=== PATIENT | male | born 1970 | race Caucasian/White ===

== ENCOUNTER 2016-10-10 12:55 | Inpatient (IN) | payer OTHER ==
[~2016-10-10] VITALS: Ht 185.4 cm; Wt 188.2 kg
[~2016-10-10 12:55] MED LIST: ABX; ALDACTONE25 MG PO; BROMIDE; BUMEX 1 MG TAB1 MG PO; COMBIVENT RESPIM4 GM INH; FLUTICASONE PRO16 GM NASAL; K-DUR20 MEQ PO; KLOR-CON M2020 MEQ PO; LASIX80 MG PO; METOPROLOL TART25 MG PO; PERCOCET 10/3251 TA1 PO; REQUIP0.25 MG PO; SINGULAIR10 MG PO; XANAX1 MG PO; XANAX2 MG PO; ZOCOR20 MG PO; [UNRECOGNIZED DRUG - OTHER]
[2016-10-10 14:12] LABS: BASOPHILS 0.4 % (0.0-2.0); EOSINOPHILS 1.8 % (0-7); HEMATOCRIT 52.4 % (42.0-54.0); HEMOGLOBIN 17.4 g/dL (13.5-17.5); IMMATURE GRANULOCYTES 0.9 % (0-5); MCH 30.3 pg (26.0-34.0); MCHC 33.2 g/dL (31.0-37.0); MCV 91.1 fL (80.0-100.0); MEAN PLATELET VOLUME 11.2 fL (7.4-10.4); MONOCYTES 8.4 % (2-11); NEUTROPHILS 69.5 % (40-80); PLATELET COUNT 265 10x3/uL (130-400); RBC 5.75 10x6/uL (4.20-6.10); RDW 15.5 % (11.5-14.5); WBC 9.9 10x3/uL (4.8-10.8)
[2016-10-10 14:46] LABS: ALBUMIN 4.1 g/dL (3.4-5.0); ALKALINE PHOSPHATASE 110 U/L (46-116); ALT (SGPT) 38 U/L (10-68); BILIRUBIN - TOTAL 0.54 mg/dL (0.2-1.3); CALC OSMOLALITY 282 mosm/kg (275-300); CARBON DIOXIDE 38.3 mmol/L (21.0-32.0); CHLORIDE - SERUM 98 mmol/L (98-107); CREATININE - SERUM 1.5 mg/dL (0.6-1.3); GLUCOSE 96 mg/dL (74-106); POTASSIUM - SERUM 3.8 mmol/L (3.5-5.1); PROTEIN - SERUM 7.3 g/dL (6.4-8.2); SODIUM 141 mmol/L (136-145); UREA NITROGEN 18 mg/dL (7-18); eGFR NON AFRICAN AMERICAN 53 mL/min (90-120)
[2016-10-10 14:56] LABS: CKMB 1.8 U/L (0.0-3.6); CREATINE KINASE 365 UL (21-232)
[2016-10-10 14:57] LABS: PRO BNP 4 pg/mL (0-125); TROPONIN-I < 0.017 ng/mL (0.000-0.060)
[2016-10-10] MEDS ORDERED: ADIPEX-P37.5 M1 PO (16:59)
[2016-10-10] MEDS ORDERED: CYCLOBENZAPRINE10 MG PO (16:59)
[2016-10-10] MEDS ORDERED: AMBIEN10 MG PO (16:59)
[2016-10-10 17:00] VITALS: BP 161/90; BMI 54.8
--- NOTE | 2016-10-10 17:00 | NUR ---
RECEIVED TO ROOM 2229 VIA BED FROM ED. A/O X3. C/O PAIN TO RIGHT KNEE AT THIS TIME. SKIN IS CLEAR. ICE APPLIED TO RIGHT KNEE. SUPPER TRAY SERVED IN ROOM. DENIES FURTHER NEEDS.
[2016-10-10 17:30] LABS: CKMB 1.8 U/L (0.0-3.6); CREATINE KINASE 364 UL (21-232); TROPONIN-I < 0.017 ng/mL (0.000-0.060)
--- NOTE | 2016-10-10 20:07 | NUR ---
PATIENT IS STATING HE IS HAVING 10/10 PAIN. PATIENT IS REQUESTING PAIN MEDICATION AND IS UPSET THAT NOTHING IS ORDERED. DR. LARA HAS ALREADY BEEN PAGED.
--- NOTE | 2016-10-10 20:45 | NUR ---
DR. LARA RETURNED CALL AND GAVE AN ORDER FOR PERCOCET.
[2016-10-10 21:00] VITALS: BP 149/88
--- NOTE | 2016-10-10 22:20 | NUR ---
SPOKE WITH CASANDRA ABOUT GETTING AN ORDER FOR ZOFRAN. PATIENT HAS NAUSEA AND FEELS LIKE HE IS GOING TO VOMIT.
[2016-10-10 22:59] LABS: CKMB 1.7 U/L (0.0-3.6); CREATINE KINASE 338 UL (21-232)
[2016-10-10 23:00] LABS: TROPONIN-I < 0.017 ng/mL (0.000-0.060)
[2016-10-11 01:00] VITALS: BP 119/81
[2016-10-11 04:48] LABS: BASOPHILS 0.5 % (0.0-2.0); EOSINOPHILS 2.5 % (0-7); HEMATOCRIT 49.7 % (42.0-54.0); HEMOGLOBIN 16.2 g/dL (13.5-17.5); IMMATURE GRANULOCYTES 0.8 % (0-5); LYMPHOCYTES 21.2 % (15-50); MCH 29.6 pg (26.0-34.0); MCHC 32.6 g/dL (31.0-37.0); MCV 90.9 fL (80.0-100.0); MEAN PLATELET VOLUME 11.3 fL (7.4-10.4); MONOCYTES 10.5 % (2-11); NEUTROPHILS 64.5 % (40-80); PLATELET COUNT 261 10x3/uL (130-400); RBC 5.47 10x6/uL (4.20-6.10); RDW 15.6 % (11.5-14.5); WBC 8.4 10x3/uL (4.8-10.8)
[2016-10-11 05:00] VITALS: BP 133/80
[2016-10-11 05:22] LABS: CALC OSMOLALITY 279 mosm/kg (275-300); CALCIUM 8.6 mg/dL (8.5-10.1); CARBON DIOXIDE 38.1 mmol/L (21.0-32.0); CHLORIDE - SERUM 99 mmol/L (98-107); CKMB 1.2 U/L (0.0-3.6); CREATINE KINASE 289 UL (21-232); CREATININE - SERUM 1.4 mg/dL (0.6-1.3); GLUCOSE 97 mg/dL (74-106); SODIUM 140 mmol/L (136-145); UREA NITROGEN 15 mg/dL (7-18); eGFR NON AFRICAN AMERICAN 58 mL/min (90-120)
[2016-10-11 05:28] LABS: POTASSIUM - SERUM 3.1 mmol/L (3.5-5.1); TROPONIN-I < 0.017 ng/mL (0.000-0.060)
--- NOTE | 2016-10-11 07:00 | NUR ---
PT REC'D FROM [facility]. RESTING IN BEDS. PT IS FLUSHED AND COMPLAINING OF 10/10 GENERALIZED PAIN. STATES, "I FEEL LIKE MY SKIN IS COVERED IN PINS AND NEEDLES." PT ALSO STATE HE IS NAUSEOUS FROM ALL THE PAIN. PT STATES HE TAKE PERCOCET AT HOME, BUT IT IS NOT HELPING. WILL ALERT DOCTOR. BED LOW, CALL LIGHT IN REACH, DENIES NEEDS, WILL CPOC.
--- NOTE | 2016-10-11 08:13 | NUR ---
AWAKE ALERT COLOR ADQ SKIN WARM AND DRY AT PRESENT DENIES ANY NEEDS AT THIS TIME RESP EVEN AND UNLABORED AT PRESENT.
[2016-10-11 08:30] VITALS: BP 140/72
--- NOTE | 2016-10-11 09:05 | NUR ---
MORNING MEDS PASSED AT THIS TIME. PRN DEMEROL ADMINISTERED PER PT COMPLAINTS OF 10/10 GENERALIZED PAIN. WILL REASSESS.
[2016-10-11 10:31] VITALS: Ht 185.4 cm; Wt 188.2 kg
[2016-10-11 12:03] VITALS: BP 149/74
--- NOTE | 2016-10-11 13:51 | NUR ---
PT REC'D TO ROOM FROM ICU. SITTING UP ON SIDE OF BED. VISITOR IN ROOM. AAOX4. RATING CURRENT PAIN IN ABD 02/07. 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 DRESSING TO R SC CLEAN, DRY, AND INTACT. MIDLINE INCISION WITH 18 ALYCE. SITE APPROXIMATE AND FREE OF S/SX OF INFECTION. RIA DRAIN TO RLQ EMPTIED OF 150CC'S OF SEROSANGUINOUS FLUID. DRAIN COMPRESSED AND PINNED TO GOWN. DRESSING TO DRAIN SITE HAS OLD DRY BLOOD ON IT. WILL CONTINUE TO MONITOR FOR CHANGES. BOWEL SOUNDS HYPOACTIVE X4 QUADRANTS. SCD'S ON. BED LOW, CALL LIGHT IN REACH, DENIES NEEDS, WILL CPOC.
[2016-10-11 16:13] VITALS: BP 140/71
--- NOTE | 2016-10-11 19:22 | NUR ---
PATIENT RESTING IN SEMI-FOWLERS POSITION. BROUGHT PATIENT SPRITE AND ICE PER HIS REQUEST. BED IN LOWEST POSITION AND CALL LIGHT WITHIN REACH.
[2016-10-11 21:14] VITALS: BP 130/77
[2016-10-12 00:42] VITALS: BP 109/72
--- NOTE | 2016-10-12 02:07 | NUR ---
20 G IV SITED IN L INNER FOREARM X 1 ATTEMPT, SHIVA WELL, CL IN REACH
[2016-10-12 05:29] LABS: BASOPHILS 0.3 % (0.0-2.0); EOSINOPHILS 1.7 % (0-7); HEMATOCRIT 50.5 % (42.0-54.0); HEMOGLOBIN 16.7 g/dL (13.5-17.5); IMMATURE GRANULOCYTES 0.5 % (0-5); MCHC 33.1 g/dL (31.0-37.0); MCV 90.8 fL (80.0-100.0); MEAN PLATELET VOLUME 10.9 fL (7.4-10.4); MONOCYTES 10.9 % (2-11); NEUTROPHILS 71.6 % (40-80); PLATELET COUNT 239 10x3/uL (130-400); RBC 5.56 10x6/uL (4.20-6.10); WBC 10.3 10x3/uL (4.8-10.8)
[2016-10-12 05:45] LABS: ANION GAP 9.8 mmol/L (8-16); CALCIUM 8.3 mg/dL (8.5-10.1); CARBON DIOXIDE 34.7 mmol/L (21.0-32.0); CREATININE - SERUM 1.4 mg/dL (0.6-1.3); POTASSIUM - SERUM 3.5 mmol/L (3.5-5.1)
[2016-10-12 05:55] VITALS: BP 118/58
--- NOTE | 2016-10-12 07:00 | NUR ---
PT REC'D FROM [facility]. RESTING IN BED WATCHING TV. STATES, "THE PAIN IS BETTER TODAY, BUT STILL THERE." REMINDED PT THAT HE COULD NOT HAVE PAIN MEDS UNTIL ABOUT 1130. PT UNDERSTANDS AND HAS NO QUESTIONS. BILAT SWELLING TO LE NON-PITTING. NEW IV TO L FOREARM FREE OF REDDNESS AND SWELLING. BED LOW, CALL LIGHT IN REACH, DENIES NEEDS, CPOC.
[2016-10-12 08:43] VITALS: BP 106/56
--- NOTE | 2016-10-12 09:20 | NUR ---
MORNING MEDS PASSED AT THIS TIME. RESTING IN BED WATCHING TV. COMPLAINTS OF NAUSEA. WILL ADMINISTER ANTIEMETIC ORDERED. BED LOW, CALL LIGHT IN REACH, DENIES NEEDS, CPOC.
--- NOTE | 2016-10-12 10:15 | NUR ---
PRN ZOFRAN ADMINISTERED PER COMPLAINTS OF NAUSEA. IV TO L FOREARM PATENT. BED LOW, CALL LIGHT IN REACH, PROVIDED PT WITH ICE CHIPS. CPOC.
--- NOTE | 2016-10-12 12:00 | NUR ---
PATIENT SITTING UP ON THE SIDE OF THE BED EATING LUNCH. STILL COMPLAINING OF A SLIGHT HEADACHE. BP RECHECKED FROM EARLIER @ 157/48. INSTRUCTED TO CALL IF NEEDED ANYTHING FURTHER. BED LOW AND LOCKED. CALL LIGHT IN REACH. PATIENT VERBALIZED UNDERSTANDING.
[2016-10-12 12:30] VITALS: BP 147/85
--- NOTE | 2016-10-12 14:00 | NUR ---
AWAKE ALERT COLOR ADQ SKIN WARM AND DRY RESP EVEN AND UNLABORED AT PRESENT WAITING TO GO HOME.
--- NOTE | 2016-10-12 14:35 | NUR ---
PATIENT IS SITTING UP ON THE SIDE OF THE BED TALKING ON THE PHONE. DENIES NEEDS @ THIS TIME. DENIES PAIN. INSTRUCTED TO CALL IF NEEDED ANYTHING. BED LOW AND LOCKED. PATIENT VERBALIZED UNDERSTANDING.
--- NOTE | 2016-10-12 14:53 | NUR ---
DC INSTRUCTIONS AND F/U APPOINTMENTS DISCUSSED WITH PT. IV TO L FOREARM DC'D WITH CATHETER INTACT. NO QUESTIONS OR CONCERNS VOICED AT THIS TIME. ESCORTED OUT VIA WC. DC TO HOME.
--- NOTE | 2016-10-14 15:29 | EC ---
PATIENT:BALDO GAN DATE OF SERVICE: 10/10/16 SEX: M MEDICAL RECORD: [id number] DATE OF : 70 LOCATION:D.MS [facility] AGE OF PATIENT: 46 ADMISSION DATE: 10/10/16 REFERRING PHYSICIAN: INTERPRETING PHYSICIAN: ELAN NIETO M.D. ECHOCARDIOGRAM REPORT ECHO CHARGES 4 ECHO COMPLETE CLINICAL DIAGNOSIS: DYSPNEA ECHOCARDIOGRAPHIC MEASUREMENTS (adult normal given) AC root (d.<3.7cm) 3.4 LV Septum d (<1.2 cm> 1.1 Valve Excursion 2.4 LV Septum (systole) 1.9 Left Atria (s.<4.0cm> 3.4 LVPW d(<1.2cm) 1.2 RV (d.<2.3cm) 3.1 LVPW (sytole) 1.6 LV diastole(<5.6CM) 7.7 MV E-F(>70mm/sec) LV systole 6.2 LVOT Diameter 2.1 MV exc.(>10mm) Est.ejection fraction (50-75%) Pericardial Effusion N DOPPLER: LVIT A 68.0 E 84.0 LA RVSP 27.0 LVOT 139 AOP1/2T Asc. Ao 153 RVOT 79.0 RA PA 97.0 AV Gradient Peak 9.4 AV Mean 6.3 AV Area 3.3 MV Gradient Peak 4.5 MV Mean 1.9 MV Area COMMENTS: Play Writer: Elodia SÁNCHEZOE Patient Transition Specialist:Oleg Nieto TAPE# PACS DATE OF SERVICE: 10/11/2016 REFERRING PHYSICIAN: Ana Rosa Rodriguez MD INDICATION: Dyspnea. DESCRIPTION: Left ventricle is moderately dilated. However, systolic function is preserved. Estimated ejection fraction is in the order of 60%. Mitral valve is structurally normal. There is no regurgitation or prolapse seen. Left atrium is normal in size. The aortic valve is trileaflet. There is no stenosis ECHOCARDIOGRAM REPORT [id number] BALDO GAN or regurgitation seen. Right ventricle is mildly dilated. Tricuspid valve is structurally normal. There is no regurgitation noted. Right atrium is mildly dilated. There is no pericardial effusion noted. Right ventricular systolic pressure is measured at 27 mmHg. IMPRESSION: 1. Moderately dilated left ventricle with preserved ejection fraction of 60%. 2. No valvular abnormalities are noted. TRANSINT:[id number] Voice Confirmation ID: [id number] DOCUMENT ID: [id number] ELAN NIETO M.D. at 1529 CC: [id number] DICTATION DATE: 10/12/16744 STRATEGIC ADVISOR: 10/12/16 0841 DIS IN 10/12/16 [place] [id number] [place] [id number]
== END 2016-10-12 15:13 | disposition home or self-care (01) | DRG 189 ==
LOC: D.ER 12:55 → D.MS 15:39
PROVIDERS: Family Medicine; ADMIT Emergency Medicine
DX: J96.00 Acute respiratory failure, unspecified whether with hypoxia or hypercapnia (principal); Z68.43 Body mass index [BMI] 50.0-59.9, adult; R60.0 Localized edema; I83.90 Asymptomatic varicose veins of unspecified lower extremity; R07.9 Chest pain, unspecified; I48.0 Paroxysmal atrial fibrillation; I51.7 Cardiomegaly; E78.5 Hyperlipidemia, unspecified; K21.9 Gastro-esophageal reflux disease without esophagitis; F41.9 Anxiety disorder, unspecified; E66.01 Morbid (severe) obesity due to excess calories

== ENCOUNTER 2016-11-06 05:55 | Emergency (ER) | payer OTHER ==
[2016-10-11 10:31] VITALS: BMI 54.7
[~2016-11-06 05:55] MED LIST changes: +ADIPEX-P37.5 M1 PO; +AMBIEN10 MG PO; +CYCLOBENZAPRINE10 MG PO
== END 2016-11-06 06:56 | disposition home or self-care (01) ==
LOC: D.ER 05:55
DX: S10.93XA Contusion of unspecified part of neck, initial encounter (principal); Y04.2XXA Assault by strike against or bumped into by another person, initial encounter; Y93.89 Activity, other specified; Y92.89 Other specified places as the place of occurrence of the external cause; I48.91 Unspecified atrial fibrillation; I25.10 Atherosclerotic heart disease of native coronary artery without angina pectoris; I10 Essential (primary) hypertension

== ENCOUNTER → 2016-11-06 09:30 | Outpatient (CLI) | payer OTHER ==
[2016-10-11 10:31] VITALS: BMI 54.7
== END | disposition home or self-care (01) ==
LOC: D.CT 09:30
DX: R42 Dizziness and giddiness (principal); S09.90XA Unspecified injury of head, initial encounter

== ENCOUNTER 2017-01-12 23:41 | Emergency (ER) | payer OTHER ==
[2016-10-11 10:31] VITALS: BMI 54.7
== END 2017-01-13 00:57 | disposition home or self-care (01) ==
LOC: D.ER 23:41
DX: F32.9 Major depressive disorder, single episode, unspecified (principal); I50.9 Heart failure, unspecified; I25.10 Atherosclerotic heart disease of native coronary artery without angina pectoris; I10 Essential (primary) hypertension; I73.9 Peripheral vascular disease, unspecified

== ENCOUNTER 2017-02-04 23:28 | Emergency (ER) | payer OTHER ==
[2016-10-11 10:31] VITALS: BMI 54.7
== END 2017-02-05 02:12 | disposition home or self-care (01) ==
LOC: D.ER 23:28
DX: M25.561 Pain in right knee (principal)

== ENCOUNTER 2017-02-11 22:44 | Emergency (ER) | payer OTHER ==
[2016-10-11 10:31] VITALS: BMI 54.7
[2017-02-11 23:33] LABS: BASOPHILS 0.3 % (0-2); EOSINOPHILS 1.4 % (0-7); HEMOGLOBIN 17.4 g/dL (13.5-17.5); IMMATURE GRANULOCYTES 0.8 % (0-5); LYMPHOCYTES 15.3 % (15-50); MCH 31.2 pg (26.0-34.0); MCHC 33.5 g/dL (31.0-37.0); MCV 93.2 fL (80.0-100.0); MEAN PLATELET VOLUME 11.2 fL (7.4-10.4); MONOCYTES 11.2 % (2-11); PLATELET COUNT 280 10x3/uL (130-400); RBC 5.58 10x6/uL (4.20-6.10); WBC 11.9 10x3/uL (4.8-10.8)
[2017-02-11 23:48] LABS: ALBUMIN 3.4 g/dL (3.4-5.0); ALKALINE PHOSPHATASE 94 U/L (46-116); ALT (SGPT) 42 U/L (10-68); CALC OSMOLALITY 283 mosm/kg (275-300); CALCIUM 8.8 mg/dL (8.5-10.1); CARBON DIOXIDE 34.5 mmol/L (21.0-32.0); CHLORIDE - SERUM 101 mmol/L (98-107); CREATININE - SERUM 1.3 mg/dL (0.6-1.3); GLUCOSE 98 mg/dL (74-106); POTASSIUM - SERUM 3.3 mmol/L (3.5-5.1); PROTEIN - SERUM 6.9 g/dL (6.4-8.2); SODIUM 142 mmol/L (136-145); UREA NITROGEN 14 mg/dL (7-18); eGFR NON AFRICAN AMERICAN 63 mL/min (90-120)
[2017-02-11 23:59] LABS: CHOL - HDL RATIO 8.9 ratio (2.3-4.9); CHOLESTEROL, TOTAL 196 mg/dL (0-200); CKMB 0.5 U/L (0.0-3.6); CREATINE KINASE 146 UL (21-232); HDL CHOLESTEROL 22 mg/dL (32-96); PRO BNP 13 pg/mL (0-125); TRIGLYCERIDE 451 mg/dL (30-200); TROPONIN-I < 0.017 ng/mL (0.000-0.060)
== END 2017-02-12 01:45 | disposition home or self-care (01) ==
LOC: D.ER 22:44
PROVIDERS: Emergency Medicine
DX: R07.9 Chest pain, unspecified (principal); I10 Essential (primary) hypertension; I48.2 Chronic atrial fibrillation; R05 Cough; R06.00 Dyspnea, unspecified

== ENCOUNTER 2017-03-03 21:30 | Emergency (ER) | payer OTHER ==
[2016-10-11 10:31] VITALS: BMI 54.7
== END 2017-03-04 00:20 | disposition home or self-care (01) ==
LOC: D.ER 21:30
DX: S83.91XA Sprain of unspecified site of right knee, initial encounter (principal); X58.XXXA Exposure to other specified factors, initial encounter; Y93.89 Activity, other specified; Y92.89 Other specified places as the place of occurrence of the external cause; J45.909 Unspecified asthma, uncomplicated; I10 Essential (primary) hypertension

== ENCOUNTER 2017-04-22 04:22 | Emergency (ER) | payer OTHER ==
[2016-10-11 10:31] VITALS: BMI 54.7
[2017-04-22 05:49] LABS: BASOPHILS 0.3 % (0-2); EOSINOPHILS 1.4 % (0-7); HEMATOCRIT 50.4 % (42.0-54.0); HEMOGLOBIN 16.9 g/dL (13.5-17.5); LYMPHOCYTES 18.4 % (15-50); MCH 31.6 pg (26.0-34.0); MCHC 33.5 g/dL (31.0-37.0); MCV 94.2 fL (80.0-100.0); MEAN PLATELET VOLUME 11.1 fL (7.4-10.4); NEUTROPHILS 70.9 % (40-80); RBC 5.35 10x6/uL (4.20-6.10); RDW 15.3 % (11.5-14.5); WBC 10.5 10x3/uL (4.8-10.8)
[2017-04-22 05:55] LABS: PLATELET COUNT 208 10x3/uL (130-400)
[2017-04-22 06:04] LABS: ALBUMIN 3.2 g/dL (3.4-5.0); ALKALINE PHOSPHATASE 91 U/L (46-116); ALT (SGPT) 34 U/L (10-68); CALC OSMOLALITY 274 mosm/kg (275-300); CALCIUM 8.7 mg/dL (8.5-10.1); CARBON DIOXIDE 30.3 mmol/L (21.0-32.0); CHLORIDE - SERUM 99 mmol/L (98-107); CREATININE - SERUM 1.3 mg/dL (0.6-1.3); GLUCOSE 124 mg/dL (74-106); POTASSIUM - SERUM 4.1 mmol/L (3.5-5.1); PROTEIN - SERUM 6.7 g/dL (6.4-8.2); SODIUM 136 mmol/L (136-145); UREA NITROGEN 18 mg/dL (7-18); eGFR NON AFRICAN AMERICAN 63 mL/min (90-120)
[2017-04-22 06:16] LABS: CHOL - HDL RATIO 6.8 ratio (2.3-4.9); CHOLESTEROL, TOTAL 163 mg/dL (0-200); CKMB 0.1 U/L (0.0-3.6); CREATINE KINASE 190 UL (21-232); HDL CHOLESTEROL 24 mg/dL (32-96); MAGNESIUM - SERUM 1.7 mg/dL (1.8-2.4); PRO BNP 8 pg/mL (0-125); TRIGLYCERIDE 452 mg/dL (30-200); TROPONIN-I < 0.017 ng/mL (0.000-0.060)
== END 2017-04-22 06:52 | disposition other institution (70) ==
LOC: D.ER 04:22
PROVIDERS: Emergency Medicine
DX: R07.9 Chest pain, unspecified (principal); Z91.81 History of falling; I60.9 Nontraumatic subarachnoid hemorrhage, unspecified; E83.42 Hypomagnesemia; J45.909 Unspecified asthma, uncomplicated; I10 Essential (primary) hypertension; R00.0 Tachycardia, unspecified

== ENCOUNTER 2017-05-08 22:59 | Observation (INO) | payer OTHER ==
[~2017-05-08] VITALS: Ht 185.4 cm; Wt 196.4 kg
--- NOTE | ~2017-05-08 | EC ---
PATIENT:BALDO GAN DATE OF SERVICE: 05/08/17 SEX: M MEDICAL RECORD: [id number] DATE OF : [birth year] LOCATION:D.M2 D.211 AGE OF PATIENT: 46 ADMISSION DATE: 05/08/17 REFERRING PHYSICIAN: INTERPRETING PHYSICIAN: INOCENCIA INGRAM MD ECHOCARDIOGRAM REPORT ECHO CHARGES 4 ECHO COMPLETE CLINICAL DIAGNOSIS: CP ECHOCARDIOGRAPHIC MEASUREMENTS (adult normal given) AC root (d.<3.7cm) 3.2 cm LV Septum d (<1.2 cm> 2.4 cm Valve Excursion 2.1 cm LV Septum (systole) 2.8 cm Left Atria (s.<4.0cm> 3.8 cm LVPW d(<1.2cm) 2.1 cm RV (d.<2.3cm) 3.0 cm LVPW (sytole) 2.4 cm LV diastole(<5.6CM) 3.7 cm MV E-F(>70mm/sec) cm LV systole 2.2 cm LVOT Diameter 2.2 cm MV exc.(>10mm) cm Est.ejection fraction (50-75%) % Pericardial Effusion N DOPPLER: LVIT cm/sec A 76.0 cm/sec E 97.0 cm/sec LA cm/sec RVSP 32.2 mmHg LVOT 176 cm/sec AOP1/2T m/s Asc. Ao 180 cm/sec RVOT 88.0 cm/sec RA cm/sec PA 121 cm/sec AV Gradient Peak 13.0 mmHg AV Mean 6.3 mmHg AV Area 3.3 cm MV Gradient Peak 4.5 mmHg MV Mean 1.8 mmHg MV Area cm COMMENTS: Wood Stainer: Elodia SÁNCHEZOE Boiler Erector: 4 Dr. Ingram TAPE# PACS DATE OF SERVICE: 05/10/2017 PROCEDURE: Transthoracic echocardiogram. FINDINGS: 1. The left ventricle has moderate concentric left ventricular hypertrophy to severe concentric left ventricular hypertrophy with preserved LV systolic function of 55% to 60%. Inflow characteristics are consistent with pseudonormalization. 2. The mitral valve difficult to visualize because the patient is morbidly ECHOCARDIOGRAM REPORT [id number] BALDO GAN obese, but the overall function appears to be normal. No significant mitral regurgitation and structure appears to be grossly normal. 3. The aortic valve is normal size, normal structure and normal function. 4. The right ventricle was shown to have mild biventricular enlargement at 3 cm with normal function. 5. The right atrium is moderately dilated with normal function. 6. The tricuspid valve has trace tricuspid regurgitation, but otherwise normal. 7. The pulmonic valve is not well visualized. 8. The pericardium is normal. There is no evidence of pericardial effusion. 9. The IVC is shown to be normal and collapses normally. CONCLUSIONS: The patient has evidence of hypertensive heart disease, otherwise normal valvular status and normal function. TRANSINT:[id number] Voice Confirmation ID: [id number] DOCUMENT ID: [id number] INOCENCIA INGRAM MD CC: [id number] DICTATION DATE: 05/10/172034 CLINICAL VETERINARIAN: 05/10/17 234 DIS IN 05/10/17 [facility] [address] [place] [address]
[2017-05-08 23:24] LABS: BASOPHILS 0.2 % (0-2); EOSINOPHILS 1.5 % (0-7); HEMATOCRIT 51.8 % (42.0-54.0); HEMOGLOBIN 18.1 g/dL (13.5-17.5); IMMATURE GRANULOCYTES 1.3 % (0-5); LYMPHOCYTES 18.9 % (15-50); MCH 31.8 pg (26.0-34.0); MCHC 34.9 g/dL (31.0-37.0); MCV 90.9 fL (80.0-100.0); MEAN PLATELET VOLUME 11.4 fL (7.4-10.4); MONOCYTES 11.8 % (2-11); NEUTROPHILS 66.3 % (40-80); RDW 15.1 % (11.5-14.5); WBC 13.5 10x3/uL (4.8-10.8)
[2017-05-08 23:34] LABS: PLATELET COUNT 281 10x3/uL (130-400)
[2017-05-08 23:50] LABS: ALBUMIN 3.6 g/dL (3.4-5.0); ALKALINE PHOSPHATASE 98 U/L (46-116); ALT (SGPT) 44 U/L (10-68); BILIRUBIN - TOTAL 0.52 mg/dL (0.2-1.3); CALC OSMOLALITY 282 mosm/kg (275-300); CALCIUM 9.1 mg/dL (8.5-10.1); CARBON DIOXIDE 27.4 mmol/L (21.0-32.0); CHLORIDE - SERUM 98 mmol/L (98-107); CREATININE - SERUM 2.1 mg/dL (0.6-1.3); GLUCOSE 102 mg/dL (74-106); POTASSIUM - SERUM 3.5 mmol/L (3.5-5.1); PROTEIN - SERUM 7.3 g/dL (6.4-8.2); SODIUM 136 mmol/L (136-145); UREA NITROGEN 42 mg/dL (7-18); eGFR NON AFRICAN AMERICAN 36 mL/min (90-120)
[2017-05-08 23:59] LABS: CHOL - HDL RATIO 7.9 ratio (2.3-4.9); CHOLESTEROL, TOTAL 157 mg/dL (0-200); CKMB 0.6 U/L (0.0-3.6); CREATINE KINASE 220 UL (21-232); HDL CHOLESTEROL 20 mg/dL (32-96)
[2017-05-09] LABS: TRIGLYCERIDE 529 mg/dL (30-200); TROPONIN-I < 0.017 ng/mL (0.000-0.060)
[2017-05-09] MEDS ORDERED: HYDROCODONE-APA1 TAB PO (02:07)
[2017-05-09] MEDS ORDERED: BREO ELLIPTA 21 EACH (02:07)
[2017-05-09] MEDS ORDERED: ATIVAN1 MG PO (02:08)
[2017-05-09] MEDS ORDERED: TOPAMAX25 MG PO (02:11)
[2017-05-09] MEDS ORDERED: ALDACTONE50 MG PO (02:11)
[2017-05-09 02:12] VITALS: BP 127/97; BMI 57.2
[2017-05-09] MEDS ORDERED: PROAIR HFA8.5 GM INH (02:12)
[2017-05-09 07:08] LABS: CKMB 0.8 U/L (0.0-3.6)
[2017-05-09 07:10] LABS: CREATINE KINASE 289 UL (21-232); TROPONIN-I < 0.017 ng/mL (0.000-0.060)
[2017-05-09 07:49] VITALS: BP 129/60
[2017-05-09 11:48] VITALS: BP 113/60
[2017-05-09 11:56] VITALS: Ht 185.4 cm; Wt 196.4 kg
[2017-05-09 12:06] LABS: CKMB 0.8 U/L (0.0-3.6); CREATINE KINASE 211 UL (21-232); TROPONIN-I < 0.017 ng/mL (0.000-0.060)
[2017-05-09 15:21] VITALS: BP 128/70
[2017-05-09 18:15] LABS: CKMB 0.8 U/L (0.0-3.6); CREATINE KINASE 202 UL (21-232); TROPONIN-I < 0.017 ng/mL (0.000-0.060)
[2017-05-09 19:00] VITALS: BP 130/67
[2017-05-10] VITALS: BP 120/62
[2017-05-10 08:26] VITALS: BP 150/54
[2017-05-10] MEDS ORDERED: ALDACTONE50 MG PO (09:48)
[2017-05-10] MEDS ORDERED: ASPIRIN81 MG PO (09:48)
[2017-05-10] MEDS ORDERED: NITROQUICK0.4 MG SL (09:48)
[2017-05-10] MEDS ORDERED: NITRO-DUR0.2 MG TRANSDERM (09:48)
[2017-05-10] MEDS ORDERED: ZOCOR20 MG PO (09:48)
[2017-05-10 11:58] VITALS: BP 122/80
[2017-05-10 15:56] VITALS: BP 135/72
== END 2017-05-10 18:05 | disposition home or self-care (01) ==
LOC: D.ER 22:59 → OBSVTIME 23:58 → D.M2 23:58
PROVIDERS: Emergency Medicine; ADMIT Internal Medicine Cardiovascular Disease
DX: R60.0 Localized edema (principal); I83.90 Asymptomatic varicose veins of unspecified lower extremity; I11.0 Hypertensive heart disease with heart failure; I50.9 Heart failure, unspecified; J44.9 Chronic obstructive pulmonary disease, unspecified; I48.2 Chronic atrial fibrillation; I51.7 Cardiomegaly; E66.01 Morbid (severe) obesity due to excess calories

== ENCOUNTER 2017-09-20 23:06 | Emergency (ER) | payer OTHER ==
[2017-05-09 11:56] VITALS: BMI 57.1
[~2017-09-20 23:06] MED LIST changes: +ALDACTONE50 MG PO; +ASPIRIN81 MG PO; +ATIVAN1 MG PO; +BREO ELLIPTA 21 EACH; +HYDROCODONE-APA1 TAB PO; +NITRO-DUR0.2 MG TRANSDERM; +NITROQUICK0.4 MG SL; +PROAIR HFA8.5 GM INH; +TOPAMAX25 MG PO
[2017-09-20 23:41] LABS: BASOPHILS 0.2 % (0-2); EOSINOPHILS 1.2 % (0-7); HEMATOCRIT 47.5 % (42.0-54.0); HEMOGLOBIN 15.8 g/dL (13.5-17.5); LYMPHOCYTES 15.8 % (15-50); MCH 31.5 pg (26.0-34.0); MCHC 33.3 g/dL (31.0-37.0); MCV 94.6 fL (80.0-100.0); MONOCYTES 9.2 % (2-11); NEUTROPHILS 72.6 % (40-80); PLATELET COUNT 259 10x3/uL (130-400); RBC 5.02 10x6/uL (4.20-6.10); RDW 14.5 % (11.5-14.5); WBC 12.4 10x3/uL (4.8-10.8)
[2017-09-20 23:55] LABS: ALBUMIN 3.4 g/dL (3.4-5.0); ALKALINE PHOSPHATASE 85 U/L (46-116); ALT (SGPT) 33 U/L (10-68); CALC OSMOLALITY 274 mosm/kg (275-300); CARBON DIOXIDE 29.1 mmol/L (21.0-32.0); CHLORIDE - SERUM 100 mmol/L (98-107); CREATININE - SERUM 1.3 mg/dL (0.6-1.3); GLUCOSE 89 mg/dL (74-106); POTASSIUM - SERUM 3.8 mmol/L (3.5-5.1); PROTEIN - SERUM 6.8 g/dL (6.4-8.2); SODIUM 137 mmol/L (136-145); UREA NITROGEN 17 mg/dL (7-18); eGFR NON AFRICAN AMERICAN 63 mL/min (90-120)
[2017-09-21 00:07] LABS: CHOL - HDL RATIO 5.9 ratio (2.3-4.9); CHOLESTEROL, TOTAL 154 mg/dL (0-200); CREATINE KINASE 163 UL (21-232); HDL CHOLESTEROL 26 mg/dL (32-96); LDL CHOLESTEROL 58 mg/dL (0-100); LDL-HDL RATIO 2.2 ratio (1.5-3.5); PRO BNP 25 pg/mL (0-125); TRIGLYCERIDE 352 mg/dL (30-200); TROPONIN-I < 0.017 ng/mL (0.000-0.060)
[2017-10-08] MEDS ORDERED: TRILEPTAL300 MG PO (11:43)
[2017-10-08] MEDS ORDERED: ENDOCET 10-3251 TAB PO (11:45)
[2017-10-08] MEDS ORDERED: LISINOPRIL10 MG PO (11:46)
[2017-10-08] MEDS ORDERED: SINGULAIR10 MG PO (11:47)
[2017-10-08] MEDS ORDERED: BUMEX 1 MG TAB1 MG PO (11:48)
[2017-10-08] MEDS ORDERED: REQUIP1 MG PO (11:49)
[2017-10-08] MEDS ORDERED: VENTOLIN HFA18 GM INH (11:50)
== END 2017-09-21 04:44 | disposition home or self-care (01) ==
LOC: D.ER 23:06
PROVIDERS: Family Medicine
DX: R09.1 Pleurisy (principal); R07.89 Other chest pain; I10 Essential (primary) hypertension

== ENCOUNTER → 2017-10-08 10:55 | Outpatient (CLI) | payer MEDICAID ==
[~2017-10-08] VITALS: Ht 185.4 cm; Wt 200.0 kg
--- NOTE | ~2017-10-08 | HEMODYNAMI ---
PATIENT:BALDO GAN JR MEDICAL RECORD: [id number] : 70 LOCATION:DEveliaCAT ADMISSION DATE: 10/08/17 Generatedon:10/08/201714:03 Patient name: BALDO GAN Patient #: [id number] SSN: Betty OB: 1970 Date of study: 10/08/2017 Page: Of Hemodynamic Procedure Report Patient Data Patient Demographics Procedure consent was obtained First Name: BALDO Gender: Male Last Name: ELVIA Suffix: Jr Delong Initial: O : 1970 Patient #: [id number] Age: 47 year(s) Race: Unknown Additional ID: [id number] Contact details [address]: [address] [place] [address] State: [place] City: [place] Zip code: [address] Past Medical History Allergies Allergen Reaction Date Comments Reported Other 10/08/2017 Peanuts,morphine,phenergan allergy Admission Admission Data Admission Date: 10/08/2017 Admission Time: 10:55 Admit Source: Other Height (in.): 72 BSA: 2.95 (m2) Height (cm.): 182.88 BMI: 58.32 (kg/m2) Weight (lbs.): 430 Weight (kg.): 195.04 Lab Results Lab Result Date: 10/08/2017 Lab Result Time: 12:11 Biochemistry Name Units Result Min Max BUN mg/dl 19 --(----)*- 7 18 Creatinine mg/dl 1.5 --(----)-* 0.6 1.3 CBC Name Units Result Min Max Hematocrit % 48.4 --(--*-)-- 42 54 Hemoglobin g/dl 16 --(--*-)-- 13.5 17.5 Procedure Procedure Types Cath Procedure Diagnostic Procedure [facility] w/Coronaries Miscellaneous Procedures Moderate Sedation up to 15 minutes Peripheral Cath Diagnostic Procedure Cath Peripheral Fktpk-Yfslkoe-Igt-Off Procedure Description Procedure Date Procedure Date: 10/08/2017 Procedure Start Time: 13:47 Procedure End Time: 14:01 Procedure Staff Name Function Kurt Hickman MD Performing Physician Rebecca Rubalcava RT Scrub Rosibel Gonzalez RN Nurse Oscar Boss RT Monitor Rosa Isela Rosenberg RT Monitor Procedure Data Cath Procedure Fluoroscopy Diagnostic fluoroscopy Total fluoroscopy Time: 1.7 time: 1.7 min min Diagnostic fluoroscopy Total fluoroscopy dose: 997 dose: 997 mGy mGy Contrast Material Contrast Material Type Amount (ml) Isovue 300 103 Entry Location Entry Primary Successful Side Size Upsize Upsize Entry Closure Succes sful Closure Location (Fr) 1 (Fr) 2 (Fr) Remarks Device Remarks Femoral Right 5 Fr Exoseal artery Estimated blood loss: 10 ml Diagnostic catheters Device Type Used For End Catheter Placement MULTIPACK JL 4.0 5Fr Procedure catheter MULTIPACK 3DRC 5Fr Procedure catheter MULTIPACK Pigtail 5 Fr Ventriculography catheter Procedure Complications No complications Procedure Medications Medication Administration Route Dosage Oxygen NC 2 l/min Lidocaine 2% added to field 20 Heparin Flush Bag added to field 2 bags (1000units/500ml NS) 0.9% NaCl I.V. 100 ml/hr Versed I.V. 2 mg Fentanyl I.V. 100 mcg Versed I.V. 1 mg Fentanyl I.V. 50 mcg Versed I.V. 1 mg Fentanyl I.V. 50 mcg Versed I.V. 1 mg Fentanyl I.V. 50 mcg Hemodynamics Rest BSA: 2.95 (m2) O2 Consumption: Estimated: 391.89 (ml/min) O2 Consumption indexed : Estimated:132.84 (ml/min/m) Heart Rate: 103 (bpm) Pressure Samples Time Site Value (mmHg) Purpose Heart Use Rate(bpm) 13:53 LV 140/-3,18 EDP 103 13:54 AO 112/79(92) Pullback 103 13:54 LV 103/8,12 Pullback 103 Gradients Valve Time Site 1 Site 2 Mean SEP/DFP Peak To Heart Use (mmHg) (sec/min) Peak Rate (mmHg) (bpm) Aortic 13:54 LV AO 0 103 103/8,12 112/79(92) Calculations Valve P-P Mean Valve Index Valve Source Name Gradient Area Flow (cm2) Aortic 0 0 Snapshots Pre Cath Intra NCS Post Cath Vital Signs Time Heart Resp SPO2 etCO2 NIBP Rhythm Pain Sedation Rate (ipm) (%) (mmHg) (mmHg) Status Level (bpm) 13:16:54 95 13 96 44.8 111/58(79) NSR 0 (11) 10(A) , No pain 13:21:47 97 15 95 42.5 115/64(85) NSR 0 (11) 10(A) , No pain 13:26:42 93 16 94 35.6 114/65(79) NSR 0 (11) 10(A) , No pain 13:31:39 93 15 93 39.4 108/49(74) NSR 0 (11) 10(A) , No pain 13:36:34 92 14 94 40.9 120/60(81) NSR 0 (11) 10(A) , No pain 13:41:31 94 16 96 53.1 127/62(82) NSR 0 (11) 10(A) , No pain 13:46:19 97 15 92 15.1 112/65(85) NSR 0 (11) 10(A) , No pain 13:51:16 97 14 97 49.3 121/60(86) NSR 0 (11) 10(A) , No pain 13:56:10 105 14 95 40.2 109/73(91) NSR 0 (11) 10(A) , No pain 14:01:00 106 15 95 48.6 116/68(95) NSR 0 (11) 10(A) , No pain Medications Time Medication Route Dose Verified Delivered Reason Notes Effe ctiveness by by 13:14:59 Oxygen NC 2 Kurt Buffie used for l/min [facility] Mumatz Gonzalez RN procedure 13:15:07 Lidocaine 2% added 20ml Kurt Kurt for local to vial [employer] anesthetic field MD SRINIVASAN 13:15:34 Heparin Flush added 2 Kurt Kurt used for Bag to bags [employer] procedure (1000units/500ml field MD SRINIVASAN NS) 13:15:43 0.9% NaCl I.V. 100 Kurt Buffie Per ml/hr [facility] Mumtaz Gonzalez RN physician 13:35:11 Versed I.V. 2 mg Ukrt Buffie for [facility] Mumtaz Gonzalez RN sedation 13:35:18 Fentanyl I.V. [address] mcg [facility] Mumtaz Gonzalez RN sedation 13:40:19 Versed I.V. 1 mg Kurt [address] [facility] Mumtaz Gonzalez RN sedation 13:40:24 Fentanyl I.V. 50 Kurt Diazie for [facility] Mumtaz Gonzalez RN sedation 13:47:33 Versed I.V. 1 mg [address] [facility] Mumtaz Gonzalez RN sedation 13:47:36 Fentanyl I.V. 50 Kurt Diazie for [facility] Mumtaz Gonzalez RN sedation 13:49:09 Versed I.V. 1 mg [address] [facility] Mum[facility]z Gonzalez RN sedation 13:49:13 Fentanyl I.V. 50 Kurt Diazie for [facility] Mumtaz Gonzalez RN sedation Procedure Log Time Note 12:53:08 Informed consent obtained and on chart 12:53:12 Admit Source: Other 12:53:36 Diagnostic Cath status Elective 12:54:07 Rosibel Gonzalez RN sent for patient. Start room use. 12:54:07 Time tracking: Regular hours 12:54:11 Plan of Care:Hemodynamics will remain stable., Cardiac rhythm will remain stable., Comfort level will be maintained., Respiratory function will remain adequate., Patient/ family verbilizes understanding of procedure., Procedure tolerated without complication., Recovers from procedure without complications.. 12:54:31 H&P Date Dictated: 09/29/2017 Within 30 days and on chart., H&P Addendum completed by physician on day of procedure. (MUST COMPLETE FOR ALL OUTPATIENTS). 12:56:27 Lab Result : Hemoglobin 16 g/dl 12:56:27 Lab Result : Creatinine 1.5 mg/dl 12:56:27 Lab Result : BUN 19 mg/dl 12:56:27 Lab Result : Hematocrit 48.4 % 12:59:07 Patient received from Pre/Post Procedure Room to CCL 1 Alert and oriented. Tansferred to table in Supine position. 12:59:08 Warm blankets applied, and zeus hugger turned on for patient comfort. 12:59:08 Correct patient and procedure confirmed by team. 12:59:15 ECG and BP/O2 sat monitors applied to patient. 12:59:19 Pre-procedure instructions explained to patient. 12:59:19 Pre-op teaching completed and patient verbalized understanding. 12:59:21 Family in waiting room. 12:59:22 Patient NPO since Breakfast. 13:00:34 Patient allergic to Other allergyPeanuts,morphine,phenergan 13:07:36 Was the patient premedicated? Yes 13:07:51 Is patient on blood thinner?No 13:07:55 Patient diabetic? No. 13:08:02 Previous problem with sedation/anesthesia? No ? 13:08:05 Snore? Yes 13:08:08 Sleep apnea? Yes 13:08:16 Airway obstruction? Yes Asthma 13:08:24 Patient pain scale 0/10 ?. 13:08:35 IV patent on arrival in right forearm with 0.9% NaCl at [facility]. 13:08:49 Lab results completed and on chart. 13:08:58 Right Radial & Right Groin area was prepped with chlora-prep and draped in sterile fashion 13:08:59 Alarms reviewed by R. N. 13:09:00 Sharps counted by scrub and verified by R.N. 13:09:03 Physician paged 13:11:54 Patient Height : 72 inches 13:12:01 Patient Weight : 430 lbs 13:14:59 Oxygen 2 l/min NC was administered by Rosibel Gonzalez RN; used for procedure; 13:15:07 Lidocaine 2% 20ml vial added to field was administered by Kurt Hickman MD; for local anesthetic; 13:15:34 Heparin Flush Bag (1000units/500ml NS) 2 bags added to field was administered by Kurt Hickman MD; used for procedure; 13:15:43 0.9% NaCl 100 ml/hr I.V. was administered by Rosibel Gonzalez RN; Per physician; 13:15:46 Vital chart was started 13:19:45 Use device set Femoral Dx 13:19:47 ACIST Syringe (15903) opened to sterile field. 13:19:48 Bag Decanter (2002S) opened to sterile field. 13:19:48 Medline Cath Pack ([id number]) opened to sterile field. 13:19:49 SHEATH 5FR Cambridge (NHN485) opened to sterile field. 13:19:49 DIAGNOSTIC WIRE .035 260cm J wire (417259) opened to sterile field. 13:19:51 ACIST Hand Control (95446) opened to sterile field. 13:19:52 ACIST Manifold (04247) opened to sterile field. 13:19:52 DIAGNOSTIC Multipack 5Fr catheter set ([id number]) opened to sterile field. 13:19:56 Tegaderm 4 x 4 (1626W) opened to sterile field. 13:19:57 PERCUTANEOUS ENTRY 19GA needle opened to sterile field. 13:34:08 Physician arrived 13:34:10 --------ALL STOP TIME OUT------ 13:34:20 Zero performed for pressure channel P1 13:35:00 Final Timeout: patient, procedure, and site verified with staff and physician. All members of the team are in agreement. 13:35:11 Versed 2 mg I.V. was administered by Rosibel Gonzalez RN; for sedation; 13:35:18 Fentanyl 100 mcg I.V. was administered by Rosibel Gonzalez RN; for sedation; 13:35:18 Right groin site verified by team. 13:35:22 Physical assessment completed. ASA score P 2 - A patient with mild systemic disease as per Kurt Hickman MD. 13:36:00 Sedation plan: IV Moderate Sedation Medication:Versed, Fentanyl 13:40:19 Versed 1 mg I.V. was administered by Rosibel Gonzalez RN; for sedation; 13:40:24 Fentanyl 50 mcg I.V. was administered by Rosibel Gonzalez RN; for sedation; 13:47:08 Procedure started. 13:47:08 Full Disclosure recording started 13:47:20 Local anesthetic to right femoral artery with Lidocaine 2% by Kurt Hickman MD.INITIAL ACCESS ONLY 13:47:33 Versed 1 mg I.V. was administered by Rosibel Gonzalez RN; for sedation; 13:47:36 Fentanyl 50 mcg I.V. was administered by Rosibel Gonzalez RN; for sedation; 13:47:44 Procedure type changed to Cath procedure, Diagnostic procedure, LHC, LHC w/Coronaries, Miscellaneous Procedures, Moderate Sedation up to 15 minutes, Peripheral Cath Diagnostic Procedure, Cath Peripheral, Ucoto-Eomnzxo-Wrk-Off 13:48:03 A 5 Fr sheath was inserted into the Right Femoral artery 13:49:09 Versed 1 mg I.V. was administered by Rosibel Gonzalez RN; for sedation; 13:49:13 Fentanyl 50 mcg I.V. was administered by Rosibel Gonzalez RN; for sedation; 13:49:30 A MULTIPACK JL 4.0 5Fr catheter was advanced over the wire and used for Procedure. 13:51:01 LCA angiography performed. 13:51:04 Catheter removed. 13:51:12 A MULTIPACK 3DRC 5Fr catheter was advanced over the wire and used for Procedure. 13:52:18 RCA angiography performed. 13:52:19 Catheter removed. 13:52:28 A MULTIPACK Pigtail 5 Fr catheter was advanced over the wire and used for Ventriculography. 13:52:33 LV angiography performed. 13:54:12 EF : 55 % 13:54:49 Abdominal angiogram w/ runoff was performed. 13:55:02 Left leg runoff performed. 13:55:04 Right leg runoff performed. 13:56:22 Catheter removed. 13:56:27 EXOSEAL 5Fr (EX500) opened to sterile field. 13:57:09 Sheath removed intact; hemostasis achieved with Exoseal to the Right Femoral artery. 13:57:12 Procedure ended.(Physican Out) 13:57:36 Fluoroscopy time 01.70 minutes. 13:57:42 Fluoroscopy dose: 997 mGy 13:57:42 Flurop Dose total: 997 13:57:47 Contrast amount:Isovue 300 103ml. 13:57:50 Sharps counted by scrub and verified by R.N. 13:57:53 Insertion/operative site no bleeding no hematoma. 13:58:29 Post-op/insertion site Right Femoral artery dressed using a 4 x 4 and Tegaderm. 13:58:36 Post Procedure Pulses reassessed and unchanged 13:59:10 Post-procedure physical assessment completed. ASA score P 2 - A patient with mild systemic disease as per Kurt Hickman MD. 13:59:23 Post procedure rhythm: unchanged. 13:59:26 Estimated blood loss: 10 ml 13:59:27 Post procedure instruction explained to patient.Patient verbalizes understanding. 14:00:41 Procedure and supply charges have been captured, reviewed, submitted and are correct. 14:01:08 Procedure Complication : No complications 14:01:11 Vital chart was stopped 14:01:12 See physician's report for complete and final results. 14:01:14 Report given to Pre/Post Procedure Room. 14:01:21 Patient transfered to Pre/Post Procedure Room with Stretcher. 14:01:24 Procedure ended. 14:01:24 Full Disclosure recording stopped 14::27 End room use (Document Last) Device Usage Item Name Manufacture Quantity Catalog Hospital Part Current Minimal Lot# / Number Charge Number Stock Stock Serial# Code ACIST Acist 1 38381 682591 382946 453878 20 Syringe Medical (84580) Systems Inc Bag Decanter Microtek 1 2001S 797771 46513 577524 5 (2001S) Medical Inc. Medline Cath Cardinal 1 [id number] 366494 71516 924329 5 Pack Health ([id number]) SHEATH 5FR Terumo 1 DGE497 247621 941109 884187 40 Cambridge (BXF744) DIAGNOSTIC St Julio 1 439697 353897 672556 108762 30 WIRE .035 260cm J wire (448499) ACIST Hand Acist 1 55789 317010 975892 488822 5 Control Medical (43233) Systems Inc ACIST Acist 1 53261 073773 200807 586115 5 Manifold Medical (07924) Systems Inc DIAGNOSTIC Cardinal 1 DJ2570 514866 24155 874752 30 Multipack Health 5Fr catheter set (FM0880) Tegaderm 4 x 3M 1 1626W 622726 604589 658315 5 4 (1626W) PERCUTANEOUS Cook Medical 1 [id number] 086393 305117 5 ENTRY 19GA needle MULTIPACK JL Cardinal 1 279564 5 4.0 5Fr Health catheter MULTIPACK Cardinal 1 219970 5 3DRC 5Fr Health catheter MULTIPACK Cardinal 1 125350 5 Pigtail 5 Fr Health catheter EXOSEAL 5Fr Cardinal 1 EX500 724193 398226 820604 10 (EX500) Health Signature Audit [place] Stage Time Signature Unsigned Intra-Procedure 10/08/2017 Rosa Isela Rosenberg 2:03:47 PM RT(R) Signatures Monitor : Oscar Boss RT Signature : Date : Time : Monitor : Rosa Isela Rosenberg Signature : RT Date : Time : [facility] [address] [place] [address]
--- NOTE | ~2017-10-08 | OP ---
PATIENT NAME: BALDO GAN JR MEDICAL RECORD: [id number] :70 LOCATION:D.CAT ADMISSION DATE: SURGEON: WAYNE NEWTON MD DATE OF OPERATION: 10/08/2017 PROCEDURES: Left heart catheterization, selective coronary angiography, right femoral approach plus AFRO. CATHETERS: A 5-Barbadian sheath, 5/4 left and right Jack, 5/4 pig. The procedure was tolerated. The patient returned to the liang, sheath removed and manual hemostasis obtained. FINDINGS: Left ventriculography in 30-degree FABIAN view: Normal wall motion, normal systolic function. CORONARY ANATOMY: LEFT MAIN: Left main is free of disease. LAD: Free of disease in the diagonal system. CIRCUMFLEX: Free of disease in the marginal system. RIGHT CORONARY ARTERY: Dominant artery, gives rise to PDA, free of disease. The pigtail catheter was withdrawn to the abdominal aorta at the level of the renal arteries. FINDINGS: Abdominal aorta is a smooth-walled vessel. No evidence of dissection or dilatation. The renals were not selectively engaged; however, from views present, these appear to show no significant stenosis, lower extremity runoff. Left iliac system; internal and external iliac on the right, smooth-walled vessel, free of disease. Right femoral system; common superficial and deep, smooth-walled, free of disease with 3-vessel runoff. Left; left internal and external iliacs, smooth-walled vessel, free of disease. Left femoral system includes deep superficial and common, free of disease with 3-vessel runoff. IMPRESSION: No evidence of peripheral vascular disease. Normal left ventricular function. No evidence of obstructive coronary artery disease. Okay to proceed with gastric surgery at a scheduled appointment. TRANSINT:[id number] Voice Confirmation ID: [id number] DOCUMENT ID: [id number] WAYNE NEWTON MD at 0823 CC: [id number] DICTATION DATE: 10/08/17 1409 PREPRESS PROOFER: 10/08/17 1603 DEP CLI 10/08/[address] [address]
[~2017-10-08 10:55] MED LIST changes: +ENDOCET 10-3251 TAB PO; +LISINOPRIL10 MG PO; +REQUIP1 MG PO; +TRILEPTAL300 MG PO; +VENTOLIN HFA18 GM INH
[2017-10-08 11:57] VITALS: BP 133/82; Ht 185.4 cm; Wt 200.0 kg
[2017-10-08 12:20] LABS: BASOPHILS 0.5 % (0-2); EOSINOPHILS 2.3 % (0-7); HEMATOCRIT 48.4 % (42.0-54.0); IMMATURE GRANULOCYTES 0.6 % (0-5); LYMPHOCYTES 21.2 % (15-50); MCH 32.1 pg (26.0-34.0); MCHC 33.1 g/dL (31.0-37.0); MCV 97.2 fL (80.0-100.0); MEAN PLATELET VOLUME 11.1 fL (7.4-10.4); MONOCYTES 8.7 % (2-11); NEUTROPHILS 66.7 % (40-80); PLATELET COUNT 220 10x3/uL (130-400); RBC 4.98 10x6/uL (4.20-6.10); RDW 14.3 % (11.5-14.5); WBC 8.7 10x3/uL (4.8-10.8)
[2017-10-08 12:42] LABS: ANION GAP 11.9 mmol/L (8-16); CALCIUM 8.7 mg/dL (8.5-10.1); CARBON DIOXIDE 31.5 mmol/L (21.0-32.0); CREATININE - SERUM 1.5 mg/dL (0.6-1.3); POTASSIUM - SERUM 4.4 mmol/L (3.5-5.1)
== END | disposition home or self-care (01) ==
LOC: D.CATH 10:55
PROVIDERS: Internal Medicine Interventional Cardiology
DX: I20.9 Angina pectoris, unspecified (principal); Z01.812 Encounter for preprocedural laboratory examination

== ENCOUNTER 2017-11-19 13:24 | Emergency (ER) | payer MEDICAID ==
[2017-10-08 11:57] VITALS: BMI 58.1
== END 2017-11-19 15:39 | disposition home or self-care (01) ==
LOC: D.ER 13:24
DX: S93.402A Sprain of unspecified ligament of left ankle, initial encounter (principal); X50.1XXA Overexertion from prolonged static or awkward postures, initial encounter; Y93.89 Activity, other specified; Y92.019 Unspecified place in single-family (private) house as the place of occurrence of the external cause; I10 Essential (primary) hypertension

== ENCOUNTER → 2017-11-24 18:51 | Outpatient (CLI) | payer MEDICAID ==
[2017-10-08 11:57] VITALS: BMI 58.1
== END | disposition home or self-care (01) ==
LOC: D.SLEEP 18:51
DX: G47.36 Sleep related hypoventilation in conditions classified elsewhere (principal)

== ENCOUNTER → 2017-12-23 19:16 | Outpatient (CLI) | payer MEDICAID ==
[2017-10-08 11:57] VITALS: BMI 58.1
== END | disposition home or self-care (01) ==
LOC: D.SLEEP 19:16
DX: G47.33 Obstructive sleep apnea (adult) (pediatric) (principal)

== ENCOUNTER → 2018-03-15 14:03 | Outpatient (CLI) | payer MEDICAID ==
[2017-10-08 11:57] VITALS: BMI 58.1
== END | disposition home or self-care (01) ==
LOC: D.RT 14:00
DX: J45.909 Unspecified asthma, uncomplicated (principal)

== ENCOUNTER 2018-09-21 14:00 | Emergency (ER) | payer MEDICAID ==
[~2018-09-21] VITALS: Ht 185.4 cm; Wt 190.5 kg
[2018-09-21 14:13] VITALS: BP 145/87; Ht 185.4 cm; Wt 190.5 kg
[2018-09-22] MEDS ORDERED: TALWIN NX1 TAB PO (10:55)
[2018-09-22] MEDS ORDERED: BACLOFEN20 M1 PO (10:55)
== END 2018-09-21 15:26 | disposition left against medical advice (07) ==
LOC: D.ER 14:00
DX: M25.561 Pain in right knee (principal)

== ENCOUNTER 2018-09-22 09:44 | Emergency (ER) | payer MEDICAID ==
[~2018-09-22] VITALS: Ht 185.4 cm; Wt 190.5 kg
[2018-09-22 09:56] VITALS: Ht 185.4 cm; Wt 190.5 kg
[2018-09-22] MEDS ORDERED: TALWIN NX1 TAB PO (10:55)
[2018-09-22] MEDS ORDERED: BACLOFEN20 M1 PO (10:55)
[2018-09-22 11:38] VITALS: BP 152/96
== END 2018-09-22 11:39 | disposition home or self-care (01) ==
LOC: D.ER 09:44
DX: M25.551 Pain in right hip (principal); M25.561 Pain in right knee; W18.30XA Fall on same level, unspecified, initial encounter; Y93.89 Activity, other specified; Y92.019 Unspecified place in single-family (private) house as the place of occurrence of the external cause; I50.9 Heart failure, unspecified; I25.10 Atherosclerotic heart disease of native coronary artery without angina pectoris

== ENCOUNTER 2019-01-25 10:10 | Emergency (ER) | payer MEDICAID ==
[~2019-01-25] VITALS: Ht 185.4 cm; Wt 190.5 kg
[~2019-01-25 10:10] MED LIST changes: +BACLOFEN20 M1 PO; +TALWIN NX1 TAB PO
[2019-01-25 10:13] VITALS: Ht 185.4 cm; Wt 190.5 kg
[2019-01-25] MEDS ORDERED: VOLTAREN75 MG PO (11:17)
[2019-01-25] MEDS ORDERED: ROBAXIN500 MG PO (11:17)
[2019-01-25 11:48] VITALS: BP 139/79
== END 2019-01-25 11:54 | disposition home or self-care (01) ==
LOC: D.ER 10:10
DX: M25.552 Pain in left hip (principal); S99.911A Unspecified injury of right ankle, initial encounter; V89.0XXA Person injured in unspecified motor-vehicle accident, nontraffic, initial encounter; Y93.H2 Activity, gardening and landscaping; Y92.017 Garden or yard in single-family (private) house as the place of occurrence of the external cause

== ENCOUNTER → 2019-04-21 10:38 | Outpatient (CLI) | payer MEDICAID ==
[2019-01-25 10:13] VITALS: BMI 55.4
[~2019-04-21 10:38] MED LIST changes: +COREG 3.1253.125 MG PO; +KEPPRA1000 MG PO; +LIPITOR20 MG PO; +OMNICEF300 MG PO; +PROPAFENONE HC225 MG PO; -REQUIP1 MG PO; +ROBAXIN500 MG PO; +ROPINIROLE HCL2 MG PO; +TRICOR145 MG PO; +VOLTAREN75 MG PO
--- NOTE | 2019-04-26 11:09 | EC ---
PATIENT:BALDO GAN DATE OF SERVICE: 04/21/19 SEX: M MEDICAL RECORD: [id number] DATE OF : 70 LOCATION:[facility] AGE OF PATIENT: 48 ADMISSION DATE: 04/21/19 REFERRING PHYSICIAN: INTERPRETING PHYSICIAN: DEBBIE MENESES MD ECHOCARDIOGRAM REPORT ECHO CHARGES 4 ECHO COMPLETE Date: 04/21/19 CLINICAL DIAGNOSIS: A-FIB/DIASTOLIC DYSFUNTION/ PRE-OP EVALUATION H/O HTN ECHOCARDIOGRAPHIC MEASUREMENTS (adult normal given) AC root (d.<3.7cm) 3.3 cm LV Septum d (<1.2 cm> 2.0 cm Valve Excursion 2.3 cm LV Septum (systole) 2.1 cm Left Atria (s.<4.0cm> 4.8 cm LVPW d(<1.2cm) 1.6 cm RV (d.<2.3cm) 3.0 cm LVPW (sytole) 2.6 cm LV diastole(<5.6CM) 5.3 cm MV E-F(>70mm/sec) cm LV systole 2.9 cm LVOT Diameter 2.2 cm MV exc.(>10mm) cm Est.ejection fraction (50-75%) % DOPPLER: LVIT cm/sec A 59.0 cm/sec E 108 cm/sec LA cm/sec RVSP 35.0 mmHg LVOT 139 cm/sec AOP1/2T m/s Asc. Ao 143 cm/sec RVOT 66.0 cm/sec RA cm/sec PA 96.0 cm/sec AV Gradient Peak 8.2 mmHg AV Mean 4.4 mmHg AV Area 3.4 cm MV Gradient Peak 4.4 mmHg MV Mean 1.8 mmHg MV Area cm COMMENTS: OP - HC Code Number Stamper: Elodia SÁNCHEZOE Communications Administrator: 3 Dr. Hickman TAPE# PACS Pericardial Effusion N DATE OF SERVICE: 04/21/2019 PROCEDURE: Echocardiogram. FINDINGS: 1. Left ventricular chamber size is within normal limits. Left ventricular systolic function is normal. Overall ejection fraction estimated at 55% to 60%. 2. Left atrium is enlarged at 4.8 cm. Right atrium and right ventricular chamber sizes are as well mildly dilated. ECHOCARDIOGRAM REPORT [id number] ELVIABALDO JR 3. Valvular structures have normal structure and motion. 4. Doppler interrogation reveals no significant valvular insufficiency or stenosis. Pulmonary systolic pressure is estimated at 35 mmHg. 5. No evidence of pericardial effusion or left ventricular thrombus. 6. The patient is in sinus rhythm with PVCs during the study. TRANSINT:[id number] Voice Confirmation ID: [id number] DOCUMENT ID: [id number] DEBBIE MENESES MD at 1109 CC: [id number] DICTATION DATE: 04/24/19 1140 CLINICAL TRIAL HEAD: 04/24/19 1203 DEP CLI 04/21/[address] [address]
== END | disposition home or self-care (01) ==
LOC: D.HCCARDIO 04-13 09:30
PROVIDERS: ATTEND Internal Medicine Interventional Cardiology
DX: I48.91 Unspecified atrial fibrillation (principal)

== ENCOUNTER 2019-04-21 20:34 | Inpatient (IN) | payer MEDICAID ==
[~2019-04-21] VITALS: Ht 185.4 cm; Wt 195.5 kg
--- NOTE | ~2019-04-21 | HEMODYNAMI ---
PATIENT:BALDO GAN JR MEDICAL RECORD: [id number] : 70 [id number] ADMISSION DATE: 04/23/19 Generatedon:04/26/201910:57 Patient name: BALDO GAN Patient #: [id number] SSN: [id number] : 1970 Date of study: 04/26/2019 Page: Of Hemodynamic Procedure Report Patient Data Patient Demographics Procedure consent was obtained First Name: BALDO Gender: Male Last Name: ELVIA Suffix: Jr Delong Initial: Makeda : 1970 Patient #: [id number] Age: 48 year(s) Race: SSN: [id number] Additional ID: [id number] Contact details [address]: [address] [place] [address] State: [place] City: [place] Zip code: [address] Past Medical History Performed procedures and imaging results Date Procedure Procedure Results Comments 04/25/2019 Stress testing Positive->Intermediate with SPECT MPI risk Allergies Allergen Reaction Date Comments Reported Other 10/08/2017 Peanuts,morphine,phenergan allergy Other 04/26/2019 peanut, promethazine. allergy Admission Admission Data Admission Date: 04/23/2019 Admission Time: 13:11 Admit Source: Other Insurance Payor: Medicaid Room #: D.2114 [facility] #: [id number] Height (in.): 73 BSA: 2.98 (m2) Height (cm.): 185.42 BMI: 56.85 (kg/m2) Weight (lbs.): 430.9 Weight (kg.): 195.45 Lab Results Lab Result Date: 04/26/2019 Lab Result Time: 5:03 Biochemistry Name Units Result Min Max BUN mg/dl 23 --(----)-* 7 18 Creatinine mg/dl 1.6 --(----)-* 0.6 1.3 CBC Name Units Result Min Max Hematocrit % 43.1 --(*---)-- 42 54 Hemoglobin g/dl 14.7 --(-*--)-- 13.5 17.5 Procedure Procedure Types Cath Procedure Diagnostic Procedure [facility] w/Coronaries Procedure Description Procedure Date Procedure Date: 04/26/2019 Procedure Start Time: 10:42 Procedure End Time: 10:56 Procedure Staff Name Function James Schuster MD Performing Physician Oscar Boss RT Monitor Lexi Stiles RN Nurse Steve Sierra RT Scrub Indication Paroxysmal atrial fibrillation Angina Procedure Data Cath Procedure Fluoroscopy Diagnostic fluoroscopy Total fluoroscopy Time: 1.3 time: 1.3 min min Diagnostic fluoroscopy Total fluoroscopy dose: 655 dose: 655 mGy mGy Contrast Material Contrast Material Type Amount (ml) Isovue 300 39 Entry Location Entry Primary Successful Side Size Upsize Upsize Entry Closure Montero ccessful Closure Location (Fr) 1 (Fr) 2 (Fr) Remarks Device Remarks Radial Right 6 Fr Mechanical artery Short Compression Estimated blood loss: 5 ml Diagnostic catheters Device Type Used For End Catheter Placement DIAGNOSTIC Molina 110cm 5 Procedure Fr catheter ([id number]) Procedure Complications No complications Procedure Medications Medication Administration Route Dosage 0.9% NaCl I.V. 100 ml/hr Oxygen etCO2 Nasal cannula 3 l/min Lidocaine 2% added to field 20 Heparin Flush Bag added to field 2 bags (1000units/500ml NS) Radial Cocktail added to field 1 syringe (Verapamil 2mg/Nitro 400mcg/Heparin 1500units) Versed I.V. 2 mg Fentanyl I.V. 100 mcg Versed I.V. 2 mg Fentanyl I.V. 50 mcg Versed I.V. 2 mg Fentanyl I.V. 50 mcg Hemodynamics Rest BSA: 2.98 (m2) HGB: 14.7 (g/dl) O2 Consumption: Estimated: 363.56 (ml/min) O2 Co nsumption indexed: Estimated:122 (ml/min/m) Heart Rate: 75 (bpm) Pressure Samples Time Site Value (mmHg) Purpose Heart Use Rate(bpm) 10:46 LV 113/8,7 Snapshot 82 Snapshots Pre Cath Intra NCS Post Cath Vital Signs Time Heart Resp SPO2 etCO2 NIBP (mmHg) Rhythm Pain Sedation Rate (ipm) (%) (mmHg) Status Level (bpm) 10:11:02 68 15 97 44.9 151/86(107) NSR 0 (11) 10(A) , No pain 10:15:45 73 13 96 44.9 137/78(99) NSR 0 (11) 10(A) , No pain 10:20:21 76 12 98 43.4 141/78(96) NSR 0 (11) 10(A) , No pain 10:24:23 68 12 97 0 138/79(101) NSR 0 (11) 10(A) , No pain 10:28:29 77 13 98 38.1 116/73(92) NSR 0 (11) 10(A) , No pain 10:33:28 75 15 98 41.1 Measuring NSR 0 (11) 10(A) , No pain 10:33:53 75 10 97 1.4 126/82(108) NSR 0 (11) 10(A) , No pain 10:38:39 80 11 98 40.4 130/68(85) NSR 0 (11) 10(A) , No pain 10:43:20 76 11 96 41.9 162/83(105) NSR 0 (11) 10(A) , No pain 10:47:19 79 13 98 42.7 121/73(97) NSR 0 (11) 10(A) , No pain 10:51:23 77 14 97 46.4 114/66(92) NSR 0 (11) 10(A) , No pain 10:55:25 76 9 92 53.9 109/70(83) NSR 0 (11) 10(A) , No pain Medications Time Medication Route Dose Verified Delivered Reason Notes E ffectiveness by by 10:10:16 0.9% NaCl I.V. 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 2 mg James Lexi for Mariely Stiles sedation RN 10:37:59 Fentanyl I.V. 100 mcg James Lexi for Mariely Stiles sedation RN 10:41:17 Versed I.V. 2 mg James Lexi for Mariely Stiles sedation RN 10:41:21 Fentanyl I.V. 50 mcg James Lexi for Mariely Stiles sedation RN 10:47:18 Versed I.V. 2 mg James Lexi for Mariely Stiles sedation RN 10:47:23 Fentanyl I.V. 50 mcg James Lexi for Mariely Stiles sedation junior database administrator Log Time Note 9:46:50 Diagnostic Cath Status : Elective 9:47:44 Procedure Status Elective Heart Cath (OP). 9:47:49 Steve Sierra RT(R) (CV) sent for patient. Start room use. 9:47:51 Time tracking: Regular hours (M-F 7:00 - 5:00) 9:47:56 Plan of Care:Hemodynamics will remain stable., Cardiac rhythm will remain stable., Comfort level will be maintained., Respiratory function will remain adequate., Patient/ family verbilizes understanding of procedure., Procedure tolerated without complication., Recovers from procedure without complications.. 9:51:28 Insurance Payor : Medicaid 9:51:45 Admit Source: Other 9:53:33 Indication : Paroxysmal atrial fibrillation 9:53:38 Indication : Angina 9:54:10 Lab Result : Hemoglobin 14.7 g/dl 9:54:10 Lab Result : Creatinine 1.6 mg/dl 9:54:10 Lab Result : BUN 23 mg/dl 9:54:10 Lab Result : Hematocrit 43.1 % 9:54:15 Patient Weight : 430.9 lbs 9:54:20 Patient Height : 73 inches 9:55:56 H&P Date Dictated: 04/21/2019 Within 30 days and on chart.. 9:56:13 Lab results completed and on chart. 9:57:49 Patient received from Med II to CCL 2 Alert and oriented. Tansferred to table in Supine position. 9:57:50 Warm blankets applied, and zeus hugger turned on for patient comfort. 9:57:51 Signed procedure consent form obtained from patient. 9:57:52 Correct patient and procedure confirmed by team. 9:57:53 ECG and BP/O2 sat monitors applied to patient. 9:57:54 Pre-procedure instructions explained to patient. 9:57:54 Pre-op teaching completed and patient verbalized understanding. 9:57:55 Family in waiting room. 9:57:57 Patient NPO since Midnight. 9:58:16 Patient allergic to Other allergypeanut, promethazine. 9:58:17 Is the patient allergic to Iodine/contrast media? No. 9:58:18 Is patient on blood thinner?No 9:58:20 Patient diabetic? No. 9:58:22 Previous problem with sedation/anesthesia? No ? 9:58:23 Snore? Yes 9:58:24 Sleep apnea? Yes 9:58:25 Deviated septum? No 9:58:25 Opens mouth fully? Yes 9:58:26 Sticks out tongue? Yes 9:58:27 Airway obstruction? No ? 9:58:29 Dentures? No ? 10:10:06 Vital chart was started 10:10:16 0.9% NaCl 100 ml/hr I.V. was administered by Lexi Stiles RN; used for procedure; 10:10:24 Oxygen 3 l/min etCO2 Nasal cannula was administered by Lexi Stiles RN; used for procedure; 10:10:29 Lidocaine 2% 20ml vial added to field was administered by James Schuster MD; for local anesthetic; 10:10:34 Heparin Flush Bag (1000units/500ml NS) 2 bags added to field was administered by James Schuster MD; used for procedure; 10:10:40 Radial Cocktail (Verapamil 2mg/Nitro 400mcg/Heparin 1500units) 1 syringe added to field was administered by James Schuster MD; used for procedure; 10:18:26 Pre procedure: right dorsailis pedis pulse Doppler 10:18:28 Modified Christofer's test Ulnar < 7 seconds 10:18:31 Patient pain scale 0/10 ?. 10:18:36 IV patent on arrival in left forearm with 0.9% NaCl at O. 10:18:41 Right Radial & Right Groin area was prepped with chlora-prep and draped in sterile fashion 10:18:46 Alarms reviewed by REvelia N. 10:18:46 Sharps counted by scrub and verified by REveliaNEvelia 10:18:56 Baseline sample Acquired. 10:19:00 Rhythm: sinus rhythm 10:19:04 Full Disclosure recording started 10:19:10 Use device set Radial Dx or PCI 10:19:11 ACIST Syringe (97497) opened to sterile field. 10:19:11 Medline Cath Pack ([id number]) opened to sterile field. 10:19:12 Bag Decanter (2002S) opened to sterile field. 10:19:12 ACIST Hand Control (36181) opened to sterile field. 10:19:12 ACIST Manifold (26810) opened to sterile field. 10:19:13 Tegaderm 4 x 4 (1626W) opened to sterile field. 10:19:13 MBrace Wrist Support ([id number]) opened to sterile field. 10:19:20 EMERALD Guide Wire (205-706) opened to sterile field. 10:19:21 SHEATH 6FR RAIN (0447810) opened to sterile field. 10:22:44 Zero performed for pressure channel P1 10:36:39 Physician arrived 10:36:40 --------ALL STOP TIME OUT------ 10:36:41 Final Timeout: patient, procedure, and site verified with staff and physician. All members of the team are in agreement. 10:36:42 Right Radial & Right Groin site verified by team. 10:36:45 Fire Safety Assessment: A--An alcohol-based skin anteseptic being used preoperatively., C--Open oxygen or nitrous oxide is being used., D--An ESU, laser, or fiber-optic light is being used. 10:36:47 Physical assessment completed. ASA score P 2 - A patient with mild systemic disease as per James Schuster MD. 10:37:01 3a) 45-59 Moderately reduced kidney function. 10:37:16 Maximum allowable contrast dose (3.7 X eGFR X 0.75)136 ml. 10:37:19 Sedation plan: IV Moderate Sedation Medication:Versed, Fentanyl 10:37:54 Versed 2 mg I.V. was administered by Lexi Stiles RN; for sedation; 10:37:59 Fentanyl 100 mcg I.V. was administered by Lexi Stiles RN; for sedation; 10:41:17 Versed 2 mg I.V. was administered by Lexi Stiles RN; for sedation; 10::21 Fentanyl 50 mcg I.V. was administered by Lexi Stiles RN; for sedation; ::57 Procedure started. 10:42:03 Local anesthetic to right radial artery with Lidocaine 2% by James Schuster MD.INITIAL ACCESS ONLY 10:42:10 A 6 Fr Short sheath was inserted into the Right Radial artery 10:42:52 A DIAGNOSTIC Molina 110cm 5 Fr catheter (110388) was advanced over the wire and used for Procedure. 10:46:49 LV gram done using FABIAN 10:46:52 Injector settings: Ml/sec: 5, Volume: 15, 10:47:18 Versed 2 mg I.V. was administered by Lexi Stiles RN; for sedation; :47:21 LCA angiography performed. 10:47:23 Fentanyl 50 mcg I.V. was administered by Lexi Stiles RN; for sedation; 10:47:51 RCA angiography performed. 10:47:57 Catheter removed. 10:48:14 TR BAND Large ([id number]) opened to sterile field. 10:48:22 Sheath removed intact; hemostasis achieved with Mechanical Compression to the Right Radial artery. 10:48:24 Procedure ended.(Physican Out) 10:50:09 Fluoroscopy time 01.30 minutes. 10:50:13 Fluoroscopy dose: 655 mGy 10:50:13 Flurop Dose total: 655 10:50:20 Dose Area Product 88398 mGy/cm. 10:50:32 Contrast amount:Isovue 300 39ml. 10:50:47 Maximum allowable dose exceeded? No. 10:50:48 Sharps counted by scrub and verified by R.N. 10:50:50 [place] band inflated with 12cc of air. 10:50:52 Insertion/operative site no bleeding no hematoma. 10:50:57 Post right radial artery:stable, soft, clean and dry 10:50:58 Post Procedure Pulses reassessed and unchanged 10:51:00 Post-procedure physical assessment completed. ASA score P 2 - A patient with mild systemic disease as per James Schuster MD. 10:56:09 Post procedure rhythm: unchanged. 10:56:13 Estimated blood loss: 5 ml 10:56:14 Post procedure instruction explained to patient.Patient verbalizes understanding. 10:56:14 Patient needs reinforcement of post procedure teaching. 10:56:43 Procedure and supply charges have been captured, reviewed, submitted and are correct. 10:56:45 Procedure Complication : No complications 10:56:47 Vital chart was stopped 10:56:47 See physician's report for complete and final results. 10:56:51 Report given to PCU. 10:56:53 Patient transfered to PCU with Stretcher. 10:56:56 Procedure ended. 10:56:56 Full Disclosure recording stopped 10:57:19 End room use (Document Last) Device Usage Item Name Manufacture Quantity Catalog Hospital Part Current Minima l Lot# / Number Charge Number Stock Stock Serial# Code ACIST Acist 1 53092 [id number] 109417 894682 20 Syringe Medical (39734) Systems Inc Medline Medline 1 [id number] 848097 49272 363539 5 Cath Pack ([id number]) Bag Microtek 1 2001S 947375 34974 383169 5 Decanter Medical Inc. (2001S) ACIST Hand Acist 1 10448 427761 121437 077631 5 Control Medical (52608) Systems Inc ACIST Acist 1 87776 900391 804515 125877 5 Manifold Medical (81356) Systems Inc Tegaderm 4 3M 1 1626W 364445 807105 949273 5 x 4 (1626W) MBrace Advanced 1 140-0250-00 285577 24378 725244 5 Wrist Vascular Support Dynamics ([id number]) [facility] Cardinal 1 502-455 393337 403742 738708 5 Guide Wire [facility] (671-455) SHEATH 6FR Cardinal 1 [id number] 665233 2909452 952153 5 [facility] (5089667) DIAGNOSTIC Terumo 1 40-5913 471022 560294 226557 5 Molina 110cm 5 Fr catheter (937133) TR BAND Terumo 1 [id number] 245962 072201 639752 40 Large ([id number]) Signature Audit [place] Stage Time Signature Unsigned Intra-Procedure 04/26/2019 Oscar Boss 10:57:35 AM RT(R) Signatures Performing Physician : Signature : James Schuster MD Date : Time : Monitor : Oscar Boss RT Signature : Date : Time : Nurse : Lxei Go RN Signature : Date : Time : [address] [place] [address]
[~2019-04-21 20:34] MED LIST changes: -COREG 3.1253.125 MG PO; -KEPPRA1000 MG PO; -LIPITOR20 MG PO; -OMNICEF300 MG PO; -PROPAFENONE HC225 MG PO; -TRICOR145 MG PO
[2019-04-21 20:58] LABS: BASOPHILS 0.6 % (0-2); EOSINOPHILS 2.5 % (0-7); HEMATOCRIT 41.6 % (42.0-54.0); HEMOGLOBIN 14.2 g/dL (13.5-17.5); IMMATURE GRANULOCYTES 0.6 % (0-5); LYMPHOCYTES 27.1 % (15-50); MCH 30.7 pg (26.0-34.0); MCHC 34.1 g/dL (31.0-37.0); MEAN PLATELET VOLUME 10.5 fL (7.4-10.4); MONOCYTES 10.5 % (2-11); NEUTROPHILS 58.7 % (40-80); PLATELET COUNT 259 10x3/uL (130-400); RBC 4.62 10x6/uL (4.20-6.10); RDW 13.7 % (11.5-14.5); WBC 6.8 10x3/uL (4.8-10.8)
[2019-04-21 21:02] VITALS: BP 126/67
[2019-04-21 21:09] LABS: INR 1.02 (0.85-1.17); PROTIME 12.9 SECONDS (11.6-15.0)
[2019-04-21 21:14] LABS: ALBUMIN 3.5 g/dL (3.4-5.0); ALKALINE PHOSPHATASE 103 U/L (46-116); ALT (SGPT) 33 U/L (10-68); BILIRUBIN - TOTAL 0.25 mg/dL (0.2-1.3); CALC OSMOLALITY 285 mosm/kg (275-300); CALCIUM 8.5 mg/dL (8.5-10.1); CARBON DIOXIDE 35.5 mmol/L (21.0-32.0); CHLORIDE - SERUM 101 mmol/L (98-107); CREATININE - SERUM 1.6 mg/dL (0.6-1.3); GLUCOSE 120 mg/dL (74-106); POTASSIUM - SERUM 3.5 mmol/L (3.5-5.1); SODIUM 142 mmol/L (136-145); UREA NITROGEN 19 mg/dL (7-18); eGFR NON AFRICAN AMERICAN 49 mL/min (90-120)
[2019-04-21 21:25] LABS: CKMB 0.9 U/L (0.0-3.6); CREATINE KINASE 185 UL (21-232); MAGNESIUM - SERUM 1.8 mg/dL (1.8-2.4); TROPONIN-I < 0.017 ng/mL (0.000-0.060)
[2019-04-21] MEDS ORDERED: KEPPRA1000 MG PO (23:13)
[2019-04-21 23:14] VITALS: BP 129/77; BMI 56.8
[2019-04-22 03:07] LABS: BASOPHILS 0.5 % (0-2); EOSINOPHILS 2.7 % (0-7); HEMATOCRIT 40.1 % (42.0-54.0); HEMOGLOBIN 13.4 g/dL (13.5-17.5); IMMATURE GRANULOCYTES 0.7 % (0-5); LYMPHOCYTES 26.3 % (15-50); MCH 30.6 pg (26.0-34.0); MCHC 33.4 g/dL (31.0-37.0); MCV 91.6 fL (80.0-100.0); MEAN PLATELET VOLUME 10.6 fL (7.4-10.4); MONOCYTES 10.7 % (2-11); NEUTROPHILS 59.1 % (40-80); PLATELET COUNT 250 10x3/uL (130-400); RBC 4.38 10x6/uL (4.20-6.10); RDW 13.8 % (11.5-14.5); WBC 7.5 10x3/uL (4.8-10.8)
[2019-04-22 03:33] LABS: CALC OSMOLALITY 287 mosm/kg (275-300); CALCIUM 8.8 mg/dL (8.5-10.1); CARBON DIOXIDE 35.3 mmol/L (21.0-32.0); CHLORIDE - SERUM 102 mmol/L (98-107); CREATININE - SERUM 1.5 mg/dL (0.6-1.3); GLUCOSE 102 mg/dL (74-106); POTASSIUM - SERUM 3.4 mmol/L (3.5-5.1); SODIUM 143 mmol/L (136-145); UREA NITROGEN 21 mg/dL (7-18); eGFR NON AFRICAN AMERICAN 53 mL/min (90-120)
[2019-04-22 03:41] LABS: TROPONIN-I < 0.017 ng/mL (0.000-0.060)
[2019-04-22 04:00] VITALS: BP 111/62
[2019-04-22 08:00] VITALS: BP 108/71
[2019-04-22 11:00] VITALS: BP 100/62
--- NOTE | 2019-04-22 11:00 | NUR ---
TELEMETRY SR. IV PATENT. 4+EDMA NOTED TO LOWER EXT. CALL LIGHT IN REACH. WILL MONITOR.
[2019-04-22 13:36] VITALS: Ht 185.4 cm; Wt 195.5 kg
[2019-04-22 16:23] VITALS: BP 119/65
[2019-04-22 20:00] VITALS: BP 133/70; BP 138/78
--- NOTE | 2019-04-22 20:00 | NUR ---
INITIAL ROUNDS AND ASSESSMENT COMPLETED. PT ALERT/ORIENTED. RESTING IN BED. INDEPENDENT WITH BRP. NONLABORED RESPIRATIONS ON ROOM AIR. BUMEX DRIP AT 10ML/HR INFUSING TO LEFT A/C. CPOC.
--- NOTE | 2019-04-22 20:30 | NUR ---
MEDICATED WITH BEDTIME MEDS AND REQUESTED ZOFRAN AND MORPHIVE SIVP. PT SAYING HE IS IN CONSTANT PAIN AND MORE SO NOW THAT HE IS ON THE BUMEX DRIP. ENCOURAGED PT TO RELAX AND LET CURRENT PAIN MEDS HELP.
--- NOTE | 2019-04-22 23:49 | NUR ---
PT C/O FEELING "LIKE CRAP". ASKING WHEN HE WILL GET MORE PAIN MEDS. IT IS ONE HOUR TOO EARLY. REVIEWED WITH PATIENT THAT HE IS NOT EXPERIENCING ANY DIFFERENT SYMPTOMS THAN HE HAS ALL DAY TODAY. PT CLUTCHED HIS CHEST AND SAID "THERE, MY CHEST PAIN, MY FIB IS ACTING UP" REVIEWED TELEMETRY AND PT IS 80/SR AND HAS BEEN SR THIS ENTIRE SHIFT.PT TELLS NURSE "IF YOU DON'T WANT ME TO TELL YOU WHEN I HAVE CHANGES, THEN I WON'T BOTHER YOU". EXPLAINED TO PATIENT THAT HE NEEDS TO NOTIFY NURSE IF HE EXPERIENCES ANY DIFFERENT ISSUES OTHER THAN THE ONES THAT ARE ALEADY BEING ADDRESSED WITH PAIN MEDS AND MONITORING. PT THEN ASKED WHEN HE WOULD BE ABLE TO HAVE HIS NEXT MORPHINE SHOT.
[2019-04-23] VITALS: BP 117/63
--- NOTE | 2019-04-23 00:55 | NUR ---
MEDICATED WITH MORPHINE/ZOFRAN SIVP FOR GENERALIZED PAIN TO LEGS/CHEST. PT WATCHING TV. IV BUMEX INFUSING.
[2019-04-23 04:00] VITALS: BP 100/60
[2019-04-23 05:04] LABS: BASOPHILS 0.3 % (0-2); EOSINOPHILS 2.3 % (0-7); HEMATOCRIT 41.1 % (42.0-54.0); HEMOGLOBIN 13.9 g/dL (13.5-17.5); IMMATURE GRANULOCYTES 0.5 % (0-5); LYMPHOCYTES 19.9 % (15-50); MCH 30.9 pg (26.0-34.0); MCHC 33.8 g/dL (31.0-37.0); MCV 91.3 fL (80.0-100.0); MEAN PLATELET VOLUME 10.6 fL (7.4-10.4); MONOCYTES 11.9 % (2-11); NEUTROPHILS 65.1 % (40-80); PLATELET COUNT 245 10x3/uL (130-400); RDW 13.9 % (11.5-14.5); WBC 8.7 10x3/uL (4.8-10.8)
[2019-04-23 05:38] LABS: ANION GAP 6.2 mmol/L (8-16); CALCIUM 8.1 mg/dL (8.5-10.1); CREATININE - SERUM 1.4 mg/dL (0.6-1.3); MAGNESIUM - SERUM 1.8 mg/dL (1.8-2.4); POTASSIUM - SERUM 3.2 mmol/L (3.5-5.1)
--- NOTE | 2019-04-23 07:30 | NUR ---
RECEIVED PT IN BED EYES CLOSED RESP UNLABORED SKIN W/D NAD NOTED
[2019-04-23 09:11] VITALS: BP 106/56
--- NOTE | 2019-04-23 12:41 | MORECARE ---
CASE MANAGEMENT DISCHARGE SUMMARY PATIENT: BALDO GAN O JR UNIT: [id number] ADM DATE: 04/21/19 AGE: 48 : 70 SEX: M ROOM/BED: D.2114 AUTHOR: SHEREE QUACH PHYSICIAN: REFERRING PHYSICIAN: DEBBIE MENESES MD DATE OF SERVICE: 04/23/19 Discharge Plan Patient Name: BALDO GAN [facility] [facility] 1970 Planned Disposition: Anticipated Discharge Date: Discharge Date: Expected LOS: Initial Reviewer: [email or web address] Initial Review Date: 04/21/2019 Generated: 04/23/19 1:41 pm Patient Name: BALDO GAN Page [phone] at 1241 All edits/amendments must be made on the electronic document DICTATION DATE: 04/23/19 124 DATABASE SUPPORT: LEANDRO 04/23/19 1240 RPT#: [id number] MA DATE: STATUS: ADM IN [facility] [address] [place] [address] END OF REPORT
[2019-04-23 13:08] VITALS: BP 119/76
[2019-04-23 17:06] VITALS: BP 109/54
--- NOTE | 2019-04-23 19:30 | NUR ---
INITIAL ROUNDS COMPLETED AT 193 WITH PT ALREADY REQUESTING HIS NEXT DOSE OF IV MORPHINE. REVIEWED MEDS. PT DUE AGAIN FOR IV MORPHINE AT 2147. SPOKE WITH PT ABOUT PAIN LEVEL. PT STATES 06/09. C/O ALL OVER PAIN AND LEG CRAMPS AND FEELING POORLY. CURRENTLY WATCHING TV AND THEN TALKING ON PHONE.
--- NOTE | 2019-04-23 20:32 | NUR ---
BEDTIME MEDS GIVEN. PT STILL TALKING ON PHONE. ALSO GAVE BACLOFEN, IN ADDTION TO HIS REGULAR MEDS FOR HIS C/O LEG CRAMPS. INSTRUCTED THAT IV MORHINE CAN BE RECIEVED AGAIN AFTER 2147. IV BUMEX INFUSING TO LEFT A/C AT 10ML/HR. PT SAVES ALL URINE FOR MEASURING. CPOC.
--- NOTE | 2019-04-23 22:24 | NUR ---
MEDICATED WITH MORPHINE/ZOFRAN SIVP FOR PAIN 06/09 WITH REPORTS OF PAIN ALL OVER/ AND NOW EVEN SAYING HIS ABDOMEN HURTS. MEDICATED AND CPOC.
--- NOTE | 2019-04-23 23:31 | NUR ---
PT RECIEVED IV MORPHINE AND STATES HIS PAIN LEVEL REMAINS 10/10.
[2019-04-24] VITALS: BP 114/47
--- NOTE | 2019-04-24 02:47 | NUR ---
PT RESTING WITH EYES CLOSED. NO SIGNS OF DISCOMFORT NOTED. WILL HOLD PERCOCETT SINCE PT WILL WANT IV MORPHINE WHEN HE AWAKENS.
[2019-04-24 04:00] VITALS: BP 119/54
--- NOTE | 2019-04-24 04:04 | NUR ---
PT'S IV TO LEFT A/C PULLED OUT WHEN HE WAS UP TO BATHROOM. SITED 20G X 1 ATTEMPT TO LEFT UPPER ARM AND THEN ADMINISTERED IV MORPHINE/ZOFRAN FOR PAIN/NAUSEA. PT THEN REQUESTED COLA AND CRACKERS WHICH WERE PROVIDED.
[2019-04-24 05:05] LABS: BASOPHILS 0.2 % (0-2); EOSINOPHILS 3.6 % (0-7); IMMATURE GRANULOCYTES 0.2 % (0-5); LYMPHOCYTES 19.4 % (15-50); MCH 30.6 pg (26.0-34.0); MCHC 33.3 g/dL (31.0-37.0); MCV 91.9 fL (80.0-100.0); MEAN PLATELET VOLUME 10.5 fL (7.4-10.4); MONOCYTES 9.8 % (2-11); NEUTROPHILS 66.8 % (40-80); PLATELET COUNT 225 10x3/uL (130-400); RBC 4.57 10x6/uL (4.20-6.10); RDW 13.8 % (11.5-14.5); WBC 8.1 10x3/uL (4.8-10.8)
[2019-04-24 05:09] LABS: ANION GAP 6.7 mmol/L (8-16); CALCIUM 8.1 mg/dL (8.5-10.1); CARBON DIOXIDE 36.6 mmol/L (21.0-32.0); CREATININE - SERUM 1.6 mg/dL (0.6-1.3); MAGNESIUM - SERUM 1.6 mg/dL (1.8-2.4); POTASSIUM - SERUM 3.3 mmol/L (3.5-5.1)
--- NOTE | 2019-04-24 07:15 | NUR ---
RECEIVED PT IN BED AAOX4 RESP UNLABORED DENIES ANY NEEDS OR DISCOMFORT
[2019-04-24 08:42] VITALS: BP 130/79
[2019-04-24 12:59] VITALS: BP 121/79
[2019-04-24 17:22] VITALS: BP 134/81
[2019-04-24 20:00] VITALS: BP 123/74
--- NOTE | 2019-04-24 20:00 | NUR ---
INITIAL ROUNDS AND ASSESSMENT. PT RESTING IN BED WITH NO DISTRESS. WATCHING TV. ALERT/ORIENTED. IV BUMEX AT 10ML/HR INFUSING TO LOVE PIV. NONLABORED RESPIRATIONS ON ROOM AIR. CPOC. PT REQUESTING PAIN MEDS SOON HE CAN HAVE THEM.CPOC. PROVIDE PAIN MEDS ORDERED.
--- NOTE | 2019-04-24 21:21 | NUR ---
BEDTIME MEDS HAVE BEEN GIVEN. MORPHINE AND ZOFRAN FOR PAIN/NAUSEA. PT ALSO NOTED TO BE DRINKING MULTIPLE CANS OF COLA AT ALL TIMES. HE IS MEASURING HIS URINE OUTPUT. CALL LIGHT IN REACH. CPOC.
[2019-04-25] VITALS: BP 103/56
--- NOTE | 2019-04-25 01:46 | NUR ---
AWAKE, WATCHING TV. REQUESTING PAIN MEDS FOR GENERALIZED/ALL OVER PAIN 10/10. MEDICATED WITH MORPHINE/ZOFRAN SIVP. CPOC. PT IS NPO FOR AM CARDIOLYTE STRESS TEST.
[2019-04-25 04:00] VITALS: BP 109/55
[2019-04-25 05:16] LABS: BASOPHILS 0.6 % (0-2); EOSINOPHILS 4.1 % (0-7); HEMATOCRIT 42.3 % (42.0-54.0); HEMOGLOBIN 14.4 g/dL (13.5-17.5); IMMATURE GRANULOCYTES 0.2 % (0-5); LYMPHOCYTES 23.1 % (15-50); MCV 91.2 fL (80.0-100.0); MEAN PLATELET VOLUME 10.5 fL (7.4-10.4); MONOCYTES 9.5 % (2-11); NEUTROPHILS 62.5 % (40-80); PLATELET COUNT 232 10x3/uL (130-400); RBC 4.64 10x6/uL (4.20-6.10); RDW 13.9 % (11.5-14.5); WBC 8.1 10x3/uL (4.8-10.8)
[2019-04-25 05:42] LABS: ANION GAP 6.9 mmol/L (8-16); CALCIUM 8.3 mg/dL (8.5-10.1); CARBON DIOXIDE 38.2 mmol/L (21.0-32.0); CREATININE - SERUM 1.7 mg/dL (0.6-1.3); MAGNESIUM - SERUM 1.7 mg/dL (1.8-2.4); POTASSIUM - SERUM 3.1 mmol/L (3.5-5.1)
[2019-04-25 08:33] VITALS: BP 120/72
[2019-04-25 11:56] VITALS: BP 100/64
--- NOTE | 2019-04-25 13:12 | NUR ---
Nutrition Follow-up: NPO for cardiolite lexiscan PO intake: 75-100% of meals Wt: 431# Last BM: 04/24 Labs reviewed Meds reviewed Rec resume cardiac diet after testing. RD following.
--- NOTE | 2019-04-25 13:36 | NUR ---
LEAVING FOR STRESS TEST BY W/C.
[2019-04-25 18:20] LABS: BASOPHILS 0.2 % (0-2); EOSINOPHILS 4.4 % (0-7); HEMATOCRIT 43.6 % (42.0-54.0); HEMOGLOBIN 15.1 g/dL (13.5-17.5); IMMATURE GRANULOCYTES 0.4 % (0-5); LYMPHOCYTES 17.8 % (15-50); MCH 31.3 pg (26.0-34.0); MCHC 34.6 g/dL (31.0-37.0); MCV 90.3 fL (80.0-100.0); MEAN PLATELET VOLUME 10.8 fL (7.4-10.4); MONOCYTES 9.7 % (2-11); NEUTROPHILS 67.5 % (40-80); PLATELET COUNT 244 10x3/uL (130-400); RBC 4.83 10x6/uL (4.20-6.10); RDW 13.8 % (11.5-14.5); WBC 9.3 10x3/uL (4.8-10.8)
[2019-04-25 18:28] LABS: ANION GAP 9.9 mmol/L (8-16); CALCIUM 8.6 mg/dL (8.5-10.1); CARBON DIOXIDE 34.8 mmol/L (21.0-32.0); CREATININE - SERUM 1.7 mg/dL (0.6-1.3)
[2019-04-25 18:39] LABS: POTASSIUM - SERUM 3.7 mmol/L (3.5-5.1)
--- NOTE | 2019-04-25 19:00 | NUR ---
PATIENT IS ALERT AND ORIENTED, RESTING COMFORTABLY IN BED. RESPIRATIONS ARE EVEN AND UNLABORED. NO S/S OF DISTRESS. NO C/O PAIN. CALL LIGHT WITHIN REACH. DENIES NEEDS AT THIS TIME. WILL CPOC.
[2019-04-25 20:00] VITALS: BP 99/65
--- NOTE | 2019-04-25 22:00 | NUR ---
PATIENT REQUESTING HIS PRN MORPHINE. I WENT TO PATIENT ROOM TO ADMINISTER HIS PAIN MEDICATION AND THE ALARM ON HIS CELL PHONE WENT OFF. PATIENT STATED, "I SET MY ALARM TO SO I DON'T FORGET MY MORPHINE.
[2019-04-26] VITALS: BP 102/54
[2019-04-26 04:00] VITALS: BP 110/69
[2019-04-26 05:23] LABS: BASOPHILS 0.3 % (0-2); EOSINOPHILS 4.9 % (0-7); HEMATOCRIT 43.1 % (42.0-54.0); HEMOGLOBIN 14.7 g/dL (13.5-17.5); IMMATURE GRANULOCYTES 0.3 % (0-5); MCH 30.9 pg (26.0-34.0); MCHC 34.1 g/dL (31.0-37.0); MCV 90.5 fL (80.0-100.0); MEAN PLATELET VOLUME 10.6 fL (7.4-10.4); MONOCYTES 7.9 % (2-11); NEUTROPHILS 64.6 % (40-80); PLATELET COUNT 239 10x3/uL (130-400); RBC 4.76 10x6/uL (4.20-6.10); RDW 13.8 % (11.5-14.5); WBC 8.9 10x3/uL (4.8-10.8)
[2019-04-26 05:44] LABS: ANION GAP 11.3 mmol/L (8-16); CALCIUM 8.2 mg/dL (8.5-10.1); CARBON DIOXIDE 35.8 mmol/L (21.0-32.0); CREATININE - SERUM 1.6 mg/dL (0.6-1.3); MAGNESIUM - SERUM 1.8 mg/dL (1.8-2.4)
[2019-04-26 05:48] LABS: POTASSIUM - SERUM 3.1 mmol/L (3.5-5.1)
--- NOTE | 2019-04-26 07:13 | NUR ---
REPORT RECEIVED. WILL CONTINUE WITH POC. PT CURRENTLY LYING SEMI FOWLERS. CALL LIGHT W/I REACH. PT IS AAO AND UP AD [place]. RR EVEN AND UNLABORED ON RA. BUMEX INFUSING @10ML/HR VIA L.UPPER ARM PIV. PT IS NPO FOR HEART CATH THIS AM. PT DENIES ANY NEEDS. NO S/S OF DISTRESS NOTED. WILL CTM.
[2019-04-26 08:31] VITALS: BP 103/68
--- NOTE | 2019-04-26 11:09 | HP ---
PATIENT: BALDO GAN JR MEDICAL RECORD: [id number] ACCOUNT: [id number] LOCATION:[address] : 70 ADMISSION DATE: 04/23/19 PCP: ROXI BEVERLY MD HISTORY AND PHYSICAL EXAMINATION DATE OF SERVICE: 04/22/2019 DIAGNOSES: 1. Paroxysmal atrial fibrillation. 2. Lower extremity edema. 3. Angina. HISTORY OF PRESENT ILLNESS: This is a gentleman who was previously followed by Dr. Robles with a history of atrial fibrillation, although he is not on any medications currently for atrial fibrillation. For the past 3 days, he has had multiple episodes of palpitations. He was set up for an echo by his primary care physician. During the echo, he had multiple episodes of atrial fibrillation. He presents to the Emergency Room. He has marked lower extremity swelling and this has been progressive over the past month. He has had some chest pain and his chest pain; however, correlates with the atrial fibrillation. His troponin is normal. His EKG is with no ST-T abnormalities. His EKG is now in sinus rhythm. He has not had atrial fibrillation since admission. PHYSICAL EXAMINATION: CONSTITUTIONAL/GENERAL APPEARANCE: Well nourished, well developed, appears stated age. EYES: Lids and conjunctivae noninjected. No discharge. No pallor. ENT: Lips within normal limit. No cyanosis. No pallor. NECK: Carotid arteries, bilateral normal upstroke. No bruits. No thrills. No jugular venous pressure or distention. CERVICAL LYMPH NODES: Nontender. Nonenlarged. THYROID: Not enlarged. No nodules. CARDIOVASCULAR: Precordial exam, nondisplaced. No heaves or pericardial thrills. Rate and rhythm, regular. Heart sounds, normal S1, normal S2. No S3, no gallop, no rub. Systolic murmur, not heard. Diastolic murmur, not heard. RESPIRATORY: Respiratory effort, unlabored. Normal curvature. No thoracic deformity. No chest wall tenderness. Percussion, resonant. Auscultation, clear. No wheezes, no rales, no rhonchi. ABDOMEN: Soft, nondistended, nontender. No abdominal pain, no vomiting and normal appetite. MUSCULOSKELETAL: No joint tenderness, normal gait, normal tone. SKIN: Warm and dry. OVERALL IMPRESSION: Paroxysmal atrial fibrillation with lower extremity edema. At this time, we will review the echo, start him on Rythmol 225 mg b.i.d., also start a Bumex drip for diuresis from the lower extremity edema. TRANSINT:[id number] Voice Confirmation ID: [id number] DOCUMENT ID: [id number] HISTORY AND PHYSICAL [id number] BALDO GAN JR, JEFFREY MD at 1109 CC: [id number] DICTATION DATE: 04/22/19 1008 OUTFITTER CABIN: 04/22/19 1307 ADM IN [facility] [address] [place] [address]
--- NOTE | 2019-04-26 11:10 | ST ---
PATIENT:BALDO GAN JR MEDICAL RECORD: [id number] SEX: M LOCATION:D. D.[address] ORDER #: ADMISSION DATE: 04/23/19 AGE OF PATIENT: 48 REFERRING PHYSICIAN: INTERPRETING PHYSICIAN: DEBBIE MENESES MD DATE OF SERVICE: 04/25/2019 PROCEDURE: Nuclear stress test. INDICATIONS: Angina, lower extremity edema. He was exercised on standard Lexiscan protocol with 28 mCi of sestamibi injected at peak stress, 12 mCi used previously for rest images. FINDINGS: Gated SPECT reveals dilated left ventricle; however, ejection fraction preserved at 58%. SPECT imaging: Cardiolite was used as myocardial perfusion agent. There appears to be a mixed perfusion defect inferiorly, partially fixed, partially reversible, compatible with previous inferior myocardial infarction, but ongoing reversible ischemia, as well there appears to be reversibility in the lateral segments. This includes the basal, mid, apical, lateral segments as well as the apex itself. OVERALL IMPRESSION: This is an intermediate risk nuclear stress test, LV dilatation, reversibility inferiorly as well as laterally, possibly suggestive of multivessel coronary artery disease. TRANSINT:[id number] Voice Confirmation ID: [id number] DOCUMENT ID: [id number] DEBBIE MENESES MD at 1110 CC: [id number] DICTATION DATE: 04/25/191929 OPTICAL LAB TECHNICIAN: 04/26/19 0152 ADM IN [facility] [address] [id number]
--- NOTE | 2019-04-26 11:10 | NUR ---
RECEIVED PT FROM AUTOMOBILE BODY REPAIRER. TR BAND IN PLACE TO THE RIGHT WRIST. C/D/I WITH NO S/S OF HEMATOMA PRESENT. NO S/S OF DISTRESS NOTED. NS INFUSING @200ML/HR VIA L.AC PIV. WILL CTM.
--- NOTE | 2019-04-26 11:10 | OP ---
PATIENT NAME: BALDO GAN JR MEDICAL RECORD: [id number] :70 LOCATION:D.M2 D.2114 ADMISSION DATE:04/23/19 SURGEON: DEBBIE MENESES MD DATE OF OPERATION: 04/26/2019 PROCEDURES: 1. Left heart catheterization. 2. Selective coronary angiography. 3. Left ventriculogram. INDICATION: Ongoing chest pain, abnormal nuclear stress test. PROCEDURE IN DETAIL: After informed consent was obtained and after a detailed description of the risks, benefits as well as alternative therapies, the patient elected to proceed with heart catheterization. The right radial area was prepped and draped in normal sterile fashion. Right radial artery was cannulated via modified Seldinger technique with placement of 5-Cameroonian sheath. All catheters exchanged through this sheath. FINDINGS: Left ventriculogram was performed in standard 30-degree FABIAN view, reveals good cardiac wall motion throughout all segments. Overall ejection fraction estimated 60%. SELECTIVE CORONARY ANGIOGRAPHY: Left main, left anterior descending, left circumflex, and right coronary artery are all smooth-walled vessels with no angiographic evidence of coronary artery disease. OVERALL IMPRESSION: 1. No angiographic evidence of coronary artery disease. 2. Normal left heart pressures. 3. Normal left ventricular systolic function. Chest pain is noncardiac in etiology. TRANSINT:[id number] Voice Confirmation ID: [id number] DOCUMENT ID: [id number] DEBBIE MENESES MD at 1110 CC: [id number] DICTATION DATE: 04/26/19 1053 MOBILE PHONE SALESPERSON: 04/26/19 1059 [place] [address]
--- NOTE | 2019-04-26 13:05 | NUR ---
I have reviewed this patient and I concur with the Shift Assessment completed by the Licensed Practical Nurse today this shift.
--- NOTE | 2019-04-26 14:03 | NUR ---
PT DISCHARGED HOME VIA WHEELCHAIR WITH FAMILY. PIV REMOVED WITH CATHETER TIP FULLY INTACT. TELEMETRY REMOVED AND RETURNED. PT SIGNED PROPER DISCHARGE INSTRUCTION AND REMOVED ALL VALUABLES FROM THE ROOM.
--- NOTE | 2019-04-26 15:22 | MORECARE ---
CASE MANAGEMENT DISCHARGE SUMMARY PATIENT: BALDO GAN JR UNIT: [id number] ADM DATE: 04/23/19 AGE: 48 : 70 SEX: M ROOM/BED: D.2114 AUTHOR: PHILOMENA,DOC PHYSICIAN: REFERRING PHYSICIAN: DEBBIE MENESES MD DATE OF SERVICE: 04/26/19 Discharge Plan Patient Name: BALDO GAN Facility: [facility]:[place] : 1970 Planned Disposition: Home Anticipated Discharge Date: 04/26/19 Discharge Date: 04/26/2019 Expected LOS: 3 Initial Reviewer: [email or web address] Initial Review Date: 04/21/2019 Generated: 04/26/19 4:21 pm Comments DCP- Discharge Planning Updated by [email or web address]: Clint Polanco on 04/26/19 2:[address] Patient Name: BALDO GAN Admission Status: ER Accout number: [id number] Admission Date: 04-23-2019 : 1970 Admission Diagnosis: Attending: NATA MENESES Current LOS: 3 Anticipated DC Date: 04-26-2019 Planned Disposition: Home Primary Insurance: MEDICAID [place] Discharge Planning Comments: CM MET WITH PT IN ROOM TO DISCUSS DISCHARGE PLANNING AND NEEDS. PT REPORTS LIVING AT HOME INDEPENDENTLY WITH HIS MOTHER AND FATHER. PT HAS CPAP FROM [facility]. PT HAS NO OUTSIDE SERVICES ASSISTING IN THE HOME. CM DISCUSSED AVAILABILITY OF HOME HEALTH, REHAB SERVICES AND MEDICAL EQUIPMENT. PT DENIES DISCHARGE NEEDS, REPORTS HIS PARENTS WILL PICK HIM UP FOR DISCHARGE HOME. Seam Checker: Clint Polanco DCPIA - Discharge Planning Initial Assessment Updated by [email or web address]: Clint Polanco on 04/26/19 3:15 pm * Is the patient Alert and Oriented? Yes * How many steps to enter\exit or inside your home? NONE * PCP DR. BEVERLY * Pharmacy [facility] [address] * Preadmission Environment Home with Family * ADLs Independent * Equipment CPAP * Other Equipment [facility] - MEDICAL EQUIPMENT PROVIDER * List name and contact numbers for known caregivers / representatives who currently or will assist patient after discharge: BERT YEN, MOTHER, * Verbal permission to speak to the caregivers and representatives has been obtained from the patient. N/A * Community resources currently utilized None * Please name any agencies selected above. NONE * Additional services required to return to the preadmission environment? No * Can the patient safely return to the preadmission environment? Yes * Has this patient been hospitalized within the prior 30 days at any hospital? No Last DP export: 04/23/19 11:41 a Patient Name: BALDO GAN Page [phone] at 1522 All edits/amendments must be made on the electronic document DICTATION DATE: 04/26/19 1521 COLLECTIONS DIRECTOR: LEANDRO 04/26/19 1521 RPT#: [id number] DC DATE:04/26/19 STATUS: DIS IN [facility] [address] [place] [address] END OF REPORT
--- NOTE | 2019-04-29 10:47 | DS ---
PATIENT:BALDO GAN JR :70 MEDICAL RECORD: [id number] DISCHARGE SUMMARY ADMISSION DATE: 04/23/19 DISCHARGE DATE: 04/26/19 DIAGNOSES: 1. Obesity. 2. Lower extremity edema. 3. Chest pain. 4. Chronic obstructive pulmonary disease. 5. Smoking. 6. Hyperlipidemia. HISTORY OF PRESENT ILLNESS: This is a gentleman who presents with class IV chest pain, obesity and extreme lower extremity edema. He was on a Bumex drip for 3 days, had good diuresis and continued to have marked lower extremity edema, underwent nuclear stress testing, which was abnormal; however, cardiac catheterization was normal. He was discharged home off the Bumex drip to go back on oral Bumex as he was before. Really has no cardiac problems, he will follow up with his primary care physician. TRANSINT:[id number] Voice Confirmation ID: [id number] DOCUMENT ID: [id number] DEBBIE MENESES MD at 1047 CC: [id number] DICTATION DATE: 04/26/19 1052 COMPUTER SOFTWARE ENGINEER: 04/27/19 0004 DIS IN 04/26/[id number] [place] [address]
== END 2019-04-26 14:04 | disposition home or self-care (01) | DRG 287 ==
LOC: D.ER 20:34 → D.M2 22:01 → OBSVTIME 22:01 → D.M2 22:01
PROVIDERS: Family Medicine; ADMIT Internal Medicine Interventional Cardiology; ATTEND Internal Medicine Interventional Cardiology
PROC: B2151ZZ Fluoroscopy of Left Heart using Low Osmolar Contrast (ICD-10-PCS; 2019-04-26)
PROC: 4A023N7 Measurement of Cardiac Sampling and Pressure, Left Heart, Percutaneous Approach (ICD-10-PCS; 2019-04-26)
PROC: B2111ZZ Fluoroscopy of Multiple Coronary Arteries using Low Osmolar Contrast (ICD-10-PCS; principal; 2019-04-26 10:00)
DX: R07.89 Other chest pain (principal); Z68.43 Body mass index [BMI] 50.0-59.9, adult; I48.0 Paroxysmal atrial fibrillation; R94.30 Abnormal result of cardiovascular function study, unspecified; E66.9 Obesity, unspecified; J44.9 Chronic obstructive pulmonary disease, unspecified; E78.5 Hyperlipidemia, unspecified; I49.3 Ventricular premature depolarization; Z72.0 Tobacco use

== ENCOUNTER 2019-05-08 15:18 | Inpatient (IN) | payer MEDICAID ==
[2019-05-08] VITALS (7 sets, daily range): BP systolic 105–140; BP diastolic 62–81; BMI 59.6
[~2019-05-08] VITALS: Ht 185.4 cm; Wt 207.9 kg
[~2019-05-08 15:18] MED LIST changes: +KEPPRA1000 MG PO
[2019-05-08] MEDS ORDERED: PROPAFENONE HC225 MG PO (15:26)
[2019-05-08 15:35] LABS: BASOPHILS 0.3 % (0-2); EOSINOPHILS 2.9 % (0-7); HEMATOCRIT 42.9 % (42.0-54.0); HEMOGLOBIN 14.6 g/dL (13.5-17.5); IMMATURE GRANULOCYTES 0.7 % (0-5); LYMPHOCYTES 21.5 % (15-50); MCH 30.8 pg (26.0-34.0); MCV 90.5 fL (80.0-100.0); MEAN PLATELET VOLUME 10.6 fL (7.4-10.4); NEUTROPHILS 64.6 % (40-80); RBC 4.74 10x6/uL (4.20-6.10); RDW 13.7 % (11.5-14.5); WBC 9.7 10x3/uL (4.8-10.8)
[2019-05-08 15:37] LABS: PLATELET COUNT 316 10x3/uL (130-400)
[2019-05-08 15:50] LABS: INR 0.97 (0.85-1.17); PROTIME 12.4 SECONDS (11.6-15.0)
[2019-05-08 15:53] LABS: ALBUMIN 3.9 g/dL (3.4-5.0); ALKALINE PHOSPHATASE 123 U/L (46-116); ALT (SGPT) 37 U/L (10-68); BILIRUBIN - TOTAL 0.31 mg/dL (0.2-1.3); CALC OSMOLALITY 285 mosm/kg (275-300); CALCIUM 8.7 mg/dL (8.5-10.1); CARBON DIOXIDE 32.4 mmol/L (21.0-32.0); CHLORIDE - SERUM 102 mmol/L (98-107); CREATININE - SERUM 1.4 mg/dL (0.6-1.3); GLUCOSE 106 mg/dL (74-106); POTASSIUM - SERUM 3.6 mmol/L (3.5-5.1); PROTEIN - SERUM 7.7 g/dL (6.4-8.2); SODIUM 142 mmol/L (136-145); UREA NITROGEN 21 mg/dL (7-18); eGFR NON AFRICAN AMERICAN 57 mL/min (90-120)
[2019-05-08 16:03] LABS: C-REACTIVE PROTEIN 1.9 mg/dL (0.0-0.9); CKMB 1.1 U/L (0.0-3.6); CREATINE KINASE 159 UL (21-232)
[2019-05-08 16:04] LABS: APTT 27.2 SECONDS (22.8-39.4); TROPONIN-I < 0.017 ng/mL (0.000-0.060)
[2019-05-08 16:05] LABS: D-DIMER-QUANTITATIVE 0.71 ug/mLFEU (0.20-0.54)
[2019-05-08 16:37] LABS: ERYTHROCYTE SEDIMENTATION RATE 21 mm/hr (0-15)
--- NOTE | 2019-05-08 16:56 | NUR ---
CONTINUES TO HAVE INTERMITTENT MUSCLE SPASMS.
[2019-05-08] MEDS ORDERED: ALDACTONE25 MG PO (18:16)
[2019-05-08] MEDS ORDERED: TRILEPTAL300 MG PO (18:21)
[2019-05-08] MEDS ORDERED: LIPITOR20 MG PO (18:30)
[2019-05-08] MEDS ORDERED: TRICOR145 MG PO (18:30)
[2019-05-08] MEDS ORDERED: COREG 3.1253.125 MG PO (18:31)
--- NOTE | 2019-05-08 18:42 | NUR ---
REC'D PT 1605 FROM SALES LEDGER CLERK. AAOX4. CO "MUSCLE CRAMPS , JOINT PAIN, I FEEL LIKE MY BACK IS BREAKING IN TWO." REDDNESS AND SWELLING AND WEAPING AROUND SNAKE BITE SITE. NO S/S OF ACUTE DISTRESS. CL IN PLACE.
--- NOTE | 2019-05-08 22:45 | NUR ---
IV IN RT FOREARM REMOVED, INFILTRATED. PATIENT STILL HAS OTHER RT FOREARM IV INTACT, 20G
--- NOTE | 2019-05-08 23:43 | NUR ---
PATIENT RAT EXTERMINATOR LIGHT, STATES HE FEEL LIKES HIS "HEART HAS FLUTTERED A FEW TIMES" PATIENT IS NORMAL SINUS ON MONITOR, HR 84 RATE REGULAR. VITAL MACHINE CHECKED. PATIENT MAINTAINED REGULAR HR. PATIENT REASSURED THAT MONITOR WAS ON AND WORKING PROPERLY. CALL LIGHT WITHIN REACH. DENIES FURTHER NEEDS OR CONCERNS AT THIS TIME. WILL CONTINUE TO MONITOR.
[2019-05-09] VITALS (14 sets, daily range): BP systolic 102–136; BP diastolic 56–83; Ht 185.4 cm; Wt 207.9 kg
--- NOTE | 2019-05-09 04:00 | NUR ---
CHG BATH GIVEN. PATIENT TOLERATED WELL. PATIENT REPOSITIONED. IV FLUSHED AND CAPPED. VSS. BED LOWERED/LOCKED. CALL LIGHT IN REACH. WARM BLANKET PROVIDED. WILL CONTINUE TO MONITOR.
--- NOTE | 2019-05-09 04:47 | NUR ---
PATIENT STILL C/O OCCASIONAL "HEART FLUTTERS" WHEN PATIENT HAS EPISODE, OCCASIONAL PVC NOTED ON MONITOR. PATIENT STATES HE WAS IN HOSPITAL A COUPLE WEEKS AGO FOR AFIB AND DID NOT HAVE HIS RYTHMOL LAST NIGHT.
--- NOTE | 2019-05-09 07:13 | NUR ---
REPORT RECEIVED. ROUNDED ON PT. ON O2 AT 1L. PT HAS PAIN IN LLE. SWELLING. SONA FROM SNAKE BITE NOTED. PT HAS A RIGHT AC IV. PT USES URINAL. VSS. WILL CONTINUE TO MONITOR.
--- NOTE | 2019-05-09 09:00 | NUR ---
DR CRAWLEY ROUNDED ON PT. STATED HE DID NOT NEED TO HAVE SURGERY ON LEFT LOWER LEG WHERE SNAKE BIT PT. GAVE AM MEDS. WAITING ON RHYTHMOL FROM PHARMACY. PT LEFT LEG ELEVATED MORE AND ICE APPLIED PER ORDERS. VSS. WILL CONTINUE TO MONITOR.
--- NOTE | 2019-05-09 11:20 | NUR ---
PT REQUESTED RAGS AND A TUB OF WARM WATER TO WASH HIS FEET BEFORE LUNCH. NO OTHER NEEDS AT THIS TIME.
--- NOTE | 2019-05-09 13:20 | NUR ---
DR PARDO ROUNDED ON PT. SAID HE COULD TRANSFER OUT TO THE FLOOR.
--- NOTE | 2019-05-09 13:50 | NUR ---
REPORT CALLED TO LINDA KRAMER. PT TRANSFERRING TO [id number].
--- NOTE | 2019-05-09 14:27 | NUR ---
PATIENT RECEIVED. SPRITE, LARGE GLASS OF ICE, AND URINAL RECEIVED. [employer] MAKER FLOWSHEET COMPLETED. S1, S2 HEARD. IV IN RIGHT UPPER ARM. LUNG SOUNDS WNL, BS ACTIVE X 4. STATES BM THIS AM. CL IN REACH. NO FURTHER NEEDS AT THIS TIME.
[2019-05-09 19:19] LABS: APPEARANCE CLEAR (CLEAR); BILIRUBIN NEGATIVE (NEGATIVE); COLOR YELLOW (YELLOW); GLUCOSE NEGATIVE (NEGATIVE); KETONE NEGATIVE (NEGATIVE); NITRITE NEGATIVE (NEGATIVE); PROTEIN NEGATIVE (NEGATIVE); UROBILINOGEN NORMAL (NORMAL)
--- NOTE | 2019-05-09 23:23 | NUR ---
PT RESTING IN BED. EYES CLOSED. NO SIGNS OF DISTRESS. BREATHING EVEN AND UNLABORED. IV SITE RT UPPER ARM DRESSING CLEAN DRY AND INTACT. NO SIGNS OF INFECTION. BOWEL SOUNDS ACTIVE. LT LOWER LEG SWELLING PRESENT. WILL CONTINUE PLAN OF CARE. CALL LIGHT IN REACH. BED LOWERED AND LOCKED. BED RAILS UP X2.
[2019-05-10 01:17] VITALS: BP 115/50
--- NOTE | 2019-05-10 02:53 | NUR ---
I have reviewed this patient and I concur with the Shift Assessment completed by the Licensed Practical Nurse today this shift.
[2019-05-10 04:59] VITALS: BP 124/64
--- NOTE | 2019-05-10 07:24 | NUR ---
ALERT AND ORIENTED. LUNGS CLEAR BILATERALLY IN ALL MORA. HEART SOUNDS S1 AND S2 HEARD IN ALL MORA. BOWEL SOUNDS ACTIVE X 4. SNAKE BITE TO LEFT LOWER LEG MARKED. NO SIGNS SIGNIFICANT SWELLING OR REDNESS. SKIN OTHERWISE INTACT WITHOUT REDNESSS. IV TO TRACY PATENT WITHOUT REDNESS. DENIES NEEDS. BED LOW. CALL CORBETT AND PERSONAL ITEMS IN REACH. WILL CONTINUE TO MONITOR.
[2019-05-10 08:07] VITALS: BP 140/80
[2019-05-10] MEDS ORDERED: OMNICEF300 MG PO (11:08)
[2019-05-10 11:50] LABS: BASOPHILS 0.4 % (0-2); EOSINOPHILS 2.8 % (0-7); HEMATOCRIT 39.5 % (42.0-54.0); HEMOGLOBIN 13.2 g/dL (13.5-17.5); IMMATURE GRANULOCYTES 0.6 % (0-5); LYMPHOCYTES 15.4 % (15-50); MCH 30.7 pg (26.0-34.0); MCHC 33.4 g/dL (31.0-37.0); MCV 91.9 fL (80.0-100.0); MEAN PLATELET VOLUME 10.6 fL (7.4-10.4); MONOCYTES 11.8 % (2-11); PLATELET COUNT 267 10x3/uL (130-400); RDW 13.5 % (11.5-14.5); WBC 8.9 10x3/uL (4.8-10.8)
--- NOTE | 2019-05-10 11:55 | NUR ---
RESTING IN BED. DENIES NEEDS. WILL CONTINUE TO MONITOR.
[2019-05-10 12:20] LABS: ALBUMIN 3.5 g/dL (3.4-5.0); ANION GAP 8.8 mmol/L (8-16); BILIRUBIN - TOTAL 0.38 mg/dL (0.2-1.3); CALCIUM 8.1 mg/dL (8.5-10.1); CARBON DIOXIDE 34.7 mmol/L (21.0-32.0); CREATININE - SERUM 1.2 mg/dL (0.6-1.3); POTASSIUM - SERUM 4.5 mmol/L (3.5-5.1); PROTEIN - SERUM 6.6 g/dL (6.4-8.2)
--- NOTE | 2019-05-10 12:30 | NUR ---
TUBE BENDER NOTIFIED OF PATIENT NOT WANTING TO DISCHARGE D/T PAIN. STATES WILL SEE PATIENT.
[2019-05-10 13:27] VITALS: BP 138/56
--- NOTE | 2019-05-10 14:36 | NUR ---
RESTING IN BED. DENIES NEEDS. WILL CONTINUE TO MONITOR.
--- NOTE | 2019-05-10 14:36 | MORECARE ---
CASE MANAGEMENT DISCHARGE SUMMARY PATIENT: BALDO GAN O JR UNIT: [id number] ADM DATE: 05/08/19 AGE: 48 : 70 SEX: M ROOM/BED: D.2214 AUTHOR: SHEREE QUACH PHYSICIAN: REFERRING PHYSICIAN: JUS PARDO MD DATE OF SERVICE: 05/10/19 Discharge Plan Patient Name: BALDO GAN [facility] [facility] 1970 Planned Disposition: Home or Self Care Anticipated Discharge Date: Discharge Date: Expected LOS: Initial Reviewer: [email or web address] Initial Review Date: 05/08/2019 Generated: 05/10/19 3:36 pm Patient Name: BALDO GAN Page [phone] at 1436 All edits/amendments must be made on the electronic document DICTATION DATE: 05/10/19 1436 AIR HAMMER STRIPPER: LEANDRO 05/10/19 1436 RPT#: [id number] DC DATE: STATUS: ADM IN [facility] [address] [place] [address] END OF REPORT
--- NOTE | 2019-05-10 15:30 | MORECARE ---
CASE MANAGEMENT DISCHARGE SUMMARY PATIENT: BALDO GAN JR UNIT: [id number] ADM DATE: 05/08/19 AGE: 48 : 70 SEX: M ROOM/BED: D.2214 AUTHOR: PHILOMENADOC PHYSICIAN: REFERRING PHYSICIAN: JUS PARDO MD DATE OF SERVICE: 05/10/19 Discharge Plan Patient Name: BALDO GAN Facility: [facility]:[place] : 1970 Planned Disposition: Home or Self Care Anticipated Discharge Date: Discharge Date: Expected LOS: Initial Reviewer: [email or web address] Initial Review Date: 05/08/2019 Generated: 05/10/19 4:29 pm DCP- Discharge Planning Updated by [email or web address]: Omayra Woods on 05/10/19 2:[address] Patient Name: BALDO GAN Admission Status: ER Accout number: [id number] Admission Date: 05-08-2019 : 1970 Admission Diagnosis:TOXIC EFFECT OF VENOM OF SNAKE, ACCIDENTAL, INIT Attending: JUS PARDO Current LOS: 2 Anticipated DC Date: Planned Disposition: Home or Self Care Primary Insurance: MEDICAID [place] Discharge Planning Comments: CM met with patient to complete initial dc planning assessment. CM educated patient on the CM role and verbal consent given by patient to complete assessment. Patient lives at home with his parents where he is independent with his care. At discharge patient plans to return home and feels this is a safe discharge. CM discussed availability of home health, rehab services, and medical equipment. [facility]jeannine [facility] Patient denied known discharge needs at this time. CM will continue to follow and will assist as needed with dc plans/needs. Child Psychometrist: Omayra Woods DCPIA - Discharge Planning Initial Assessment Updated by [email or web address]: Omayra Woods on 05/10/19 3:25 pm * Is the patient Alert and Oriented? Yes * How many steps to enter\exit or inside your home? none * PCP SIRIA * [facility]acy [facility] * Preadmission Environment Home with Family * ADLs Independent * Equipment CPAP * List name and contact numbers for known caregivers / representatives who currently or will assist patient after discharge: BERT YEN- MOTHER * Verbal permission to speak to the caregivers and representatives has been obtained from the patient. N/A * Community resources currently utilized None * Additional services required to return to the preadmission environment? No * Can the patient safely return to the preadmission environment? Yes * Has this patient been hospitalized within the prior 30 days at any hospital? Yes Last DP export: 05/10/19 1:36 p Patient Name: BALDO GAN Page [id number] at 1530 All edits/amendments must be made on the electronic document DICTATION DATE: 05/10/191528 TRUCK CATERER: LEANDRO 05/10/191528 RPT#: [id number] DC DATE: STATUS: ADM IN [facility] [address] [place] [address] END OF REPORT
[2019-05-10 16:21] VITALS: BP 128/63
--- NOTE | 2019-05-10 17:27 | NUR ---
SITTING IN BED EATING DINNER. DENIES NEEDS. WILL CONTINUE TO MONITOR.
--- NOTE | 2019-05-10 19:30 | NUR ---
PT SITTING UP IN BED WITHOUT DISTRESS, AOX4. STATES PAIN TO LEFT FOOT, WILL GIVE MEDS ORDERED SEE MAR. IV RIGHT UPPER ARM SL. REFUSES SCDS. DENIES NEEDS. CL IN REACH, WILL CTM
[2019-05-10 21:44] VITALS: BP 107/48
[2019-05-11 01:11] VITALS: BP 121/66
--- NOTE | 2019-05-11 02:30 | NUR ---
PT STATES AFTER GETTING UP TO BATHROOM HE HAD SHARP STABBING PAINT TO LEFT FOOT THEN HE STARTED HAVING CHEST PAIN IN MIDDLE OF CHEST THAT FELT LIKE "A LOT OF PRESSURE" AND STATED HE HAS HISTORY OF CARDIAC ISSUES. STATES THERE IS PAIN WHEN HE TAKES A BREATH. RESP ARE UNLABORED AND EVEN. BP 116/67, HR 82, O2 96%, RESP 18. GAVE PT VALIUM AND ROBAXIN FOR PAIN AND ANXIETY. SPOKE WITH BERNARDINO LO APN, ORDERS FOR EKG/CARDIAC ENZYMES Q6 X3. WILL CTM
[2019-05-11 04:27] LABS: BASOPHILS 0.2 % (0-2); EOSINOPHILS 2.3 % (0-7); HEMATOCRIT 37.6 % (42.0-54.0); HEMOGLOBIN 12.6 g/dL (13.5-17.5); IMMATURE GRANULOCYTES 0.7 % (0-5); LYMPHOCYTES 14.8 % (15-50); MCH 30.7 pg (26.0-34.0); MCHC 33.5 g/dL (31.0-37.0); MCV 91.5 fL (80.0-100.0); MEAN PLATELET VOLUME 10.2 fL (7.4-10.4); MONOCYTES 10.3 % (2-11); NEUTROPHILS 71.7 % (40-80); PLATELET COUNT 236 10x3/uL (130-400); RBC 4.11 10x6/uL (4.20-6.10); RDW 13.4 % (11.5-14.5); WBC 9.2 10x3/uL (4.8-10.8)
[2019-05-11 05:01] LABS: ALBUMIN 2.9 g/dL (3.4-5.0); ALKALINE PHOSPHATASE 102 U/L (46-116); ALT (SGPT) 32 U/L (10-68); BILIRUBIN - TOTAL 0.35 mg/dL (0.2-1.3); CALC OSMOLALITY 274 mosm/kg (275-300); CALCIUM 7.7 mg/dL (8.5-10.1); CARBON DIOXIDE 36.8 mmol/L (21.0-32.0); CHLORIDE - SERUM 100 mmol/L (98-107); CKMB 0.6 U/L (0.0-3.6); CREATINE KINASE 127 UL (21-232); CREATININE - SERUM 1.3 mg/dL (0.6-1.3); GLUCOSE 104 mg/dL (74-106); POTASSIUM - SERUM 4.1 mmol/L (3.5-5.1); PROTEIN - SERUM 6.2 g/dL (6.4-8.2); SODIUM 138 mmol/L (136-145); UREA NITROGEN 11 mg/dL (7-18); eGFR NON AFRICAN AMERICAN 62 mL/min (90-120)
[2019-05-11 05:08] LABS: TROPONIN-I < 0.017 ng/mL (0.000-0.060)
--- NOTE | 2019-05-11 05:15 | NUR ---
PT SNORING UPON ENTERING ROOM TO GIVE ABX. WHEN WOKEN PT STATES HIS PAIN HAS NOT GOT ANY BETTER BUT FALLS ASLEEP WHILE TALKING TO THIS NURSE. BERNARDINO LO APN CALLED WITH RESULTS OF CARDIAC ENZYMES AND EKG. NO NEW ORDERS. WILL CTM
[2019-05-11 05:18] VITALS: BP 124/65
--- NOTE | 2019-05-11 07:56 | NUR ---
ALERT AND ORIENTED. LUNGS CLEAR BILATERALLY IN ALL MORA. HEART SOUNDS S1 AND S2 HEARD IN ALL MORA. BOWEL SOUNDS ACTIVE X 4. SKIN INTACT WITHOUT REDNESS. SMALL BRUISE NOTED TO LEFT LOWER LEG. STATES FROM SNAKE BITE. IV TO TRACY PATENT WITHOUT REDNESS. DENIES NEEDS AT THIS TIME. BED LOW. CALL CORBETT AND PERSONAL ITEMS IN REACH. WILL CONTINUE TO MONITOR.
[2019-05-11 09:03] VITALS: BP 100/63
[2019-05-11 10:53] LABS: CKMB 0.5 U/L (0.0-3.6); CREATINE KINASE 126 UL (21-232); TROPONIN-I < 0.017 ng/mL (0.000-0.060)
--- NOTE | 2019-05-11 12:31 | MORECARE ---
CASE MANAGEMENT DISCHARGE SUMMARY PATIENT: BALDO GAN JR UNIT: [id number] ADM DATE: 05/08/19 AGE: 48 : 70 SEX: M ROOM/BED: D.2214 AUTHOR: SHEREE QUACH PHYSICIAN: REFERRING PHYSICIAN: JUS PARDO MD DATE OF SERVICE: 05/11/19 Discharge Plan Patient Name: BALDO GAN Facility: [facility]:[place] : 1970 Planned Disposition: Home or Self Care Anticipated Discharge Date: Discharge Date: Expected LOS: Initial Reviewer: [email or web address] Initial Review Date: 05/08/2019 Generated: 05/11/19 1:31 pm Comments DCP- Discharge Planning Updated by [email or web address]: Omayra Woods on 05/11/19 11:[address] Patient to be discharged home today. No needs identified, CM to follow as needed DCP- Discharge Planning Updated by [email or web address]: Omayra Woods on 05/10/19 2:[address] Patient Name: BALDO GAN Admission Status: ER Accout number: [id number] Admission Date: 05-08-2019 : 1970 Admission Diagnosis:TOXIC EFFECT OF VENOM OF SNAKE, ACCIDENTAL, INIT Attending: JUS PARDO Current LOS: 2 Anticipated DC Date: Planned Disposition: Home or Self Care Primary Insurance: MEDICAID [place] Discharge Planning Comments: CM met with patient to complete initial dc planning assessment. CM educated patient on the CM role and verbal consent given by patient to complete assessment. Patient lives at home with his parents where he is independent with his care. At discharge patient plans to return home and feels this is a safe discharge. CM discussed availability of home health, rehab services, and medical equipment. He has a CPAP machine from [facility] (jeannine signed) Patient denied known discharge needs at this time. CM will continue to follow and will assist as needed with dc plans/needs. Coding Tech: Omayra Woods DCPIA - Discharge Planning Initial Assessment Updated by [email or web address]: Omayra Woods on 05/10/19 3:25 pm * Is the patient Alert and Oriented? Yes * How many steps to enter\exit or inside your home? none * PCP SIRIA * [facility]acy [facility] * Preadmission Environment Home with Family * ADLs Independent * Equipment CPAP * List name and contact numbers for known caregivers / representatives who currently or will assist patient after discharge: BERT YEN- MOTHER * Verbal permission to speak to the caregivers and representatives has been obtained from the patient. N/A * Community resources currently utilized None * Additional services required to return to the preadmission environment? No * Can the patient safely return to the preadmission environment? Yes * Has this patient been hospitalized within the prior 30 days at any hospital? Yes Last DP export: 05/10/19 2:30 p Patient Name: BALDO GAN Page [phone] at 1231 All edits/amendments must be made on the electronic document DICTATION DATE: 05/11/19 1231 LEAD SHIPPER: LEANDRO 05/11/19 1231 RPT#: [id number] DC DATE: STATUS: ADM IN [facility] [address] [place] [address] END OF REPORT
--- NOTE | 2019-05-11 12:45 | NUR ---
DISCHARGE EDUCATION PROVIDED BOTH WRITTEN AND VERBAL. VERBALIZED UNDERSTANDING. DENIES FURTHER QUESTIONS. IV REMOVED FROM TRACY WITH TIP INTACT. PRN PERCOCET GIVEN PER REQUEST. WAITING FOR RIDE. WILL CONTINUE TO MONITOR.
--- NOTE | 2019-05-11 14:00 | NUR ---
PATIENT DISCHARGED HOME WITH ALL BELONGINGS.
--- NOTE | 2019-05-13 12:46 | MORECARE ---
CASE MANAGEMENT DISCHARGE SUMMARY PATIENT: BALDO GAN JR UNIT: [id number] ADM DATE: 05/08/19 AGE: 48 : 70 SEX: M ROOM/BED: D.2214 AUTHOR: SHEREE QUACH PHYSICIAN: REFERRING PHYSICIAN: JUS PARDO MD DATE OF SERVICE: 05/13/19 Discharge Plan Patient Name: BALDO GAN Facility: [facility]:[place] : 1970 Planned Disposition: Home or Self Care Anticipated Discharge Date: Discharge Date: 05/11/2019 Expected LOS: 0 Initial Reviewer: [email or web address] Initial Review Date: 05/08/2019 Generated: 05/13/19 1:46 pm Comments DCP- Discharge Planning Updated by [email or web address]: Omayra Woods on 05/11/19 11:[address] Patient to be discharged home today. No needs identified, CM to follow as needed DCP- Discharge Planning Updated by [email or web address]: Omayra Woods on 05/10/19 2:[address] Patient Name: BALDO GAN Admission Status: ER Accout number: [id number] Admission Date: 05-08-2019 : 1970 Admission Diagnosis:TOXIC EFFECT OF VENOM OF SNAKE, ACCIDENTAL, INIT Attending: JUS PARDO Current LOS: 2 Anticipated DC Date: Planned Disposition: Home or Self Care Primary Insurance: MEDICAID [place] Discharge Planning Comments: CM met with patient to complete initial dc planning assessment. CM educated patient on the CM role and verbal consent given by patient to complete assessment. Patient lives at home with his parents where he is independent with his care. At discharge patient plans to return home and feels this is a safe discharge. CM discussed availability of home health, rehab services, and medical equipment. [facility]jeannine signed) Patient denied known discharge needs at this time. CM will continue to follow and will assist as needed with dc plans/needs. Chemist Instrumentation: Omayra Woods DCPIA - Discharge Planning Initial Assessment Updated by [email or web address]: Omayra Woods on 05/10/19 3:25 pm * Is the patient Alert and Oriented? Yes * How many steps to enter\exit or inside your home? none * PCP S[facility] * [facility] * Preadmission Environment Home with Family * ADLs Independent * Equipment CPAP * List name and contact numbers for known caregivers / representatives who currently or will assist patient after discharge: BERT YEN- MOTHER * Verbal permission to speak to the caregivers and representatives has been obtained from the patient. N/A * Community resources currently utilized None * Additional services required to return to the preadmission environment? No * Can the patient safely return to the preadmission environment? Yes * Has this patient been hospitalized within the prior 30 days at any hospital? Yes Last DP export: 05/11/19 11:31 a Patient Name: BALDO GAN Page [id number] at 1246 All edits/amendments must be made on the electronic document DICTATION DATE: 05/13/19 1246 SUEDE CLEANER: LEANDRO 05/13/19 1246 RPT#: [id number] DC DATE:05/11/19 STATUS: DIS IN [facility] [address] [place] [address] END OF REPORT
== END 2019-05-11 14:42 | disposition home or self-care (01) | DRG 918 ==
LOC: D.ER 15:18 → D.ICU 17:12 → D.MS 17:12 → D.ICU 20:17 → D.MS 05-09 14:08
PROVIDERS: Emergency Medicine; ADMIT Internal Medicine Nephrology; ATTEND Internal Medicine Nephrology
DX: T63.091A Toxic effect of venom of other snake, accidental (unintentional), initial encounter (principal); N17.9 Acute kidney failure, unspecified; Z68.43 Body mass index [BMI] 50.0-59.9, adult; I50.32 Chronic diastolic (congestive) heart failure; Y92.89 Other specified places as the place of occurrence of the external cause; E78.5 Hyperlipidemia, unspecified; J44.9 Chronic obstructive pulmonary disease, unspecified; G40.909 Epilepsy, unspecified, not intractable, without status epilepticus; F41.9 Anxiety disorder, unspecified; E66.01 Morbid (severe) obesity due to excess calories; I11.0 Hypertensive heart disease with heart failure; R60.0 Localized edema

== ENCOUNTER → 2019-07-12 17:42 | Outpatient (CLI) | payer MEDICAID ==
[2019-05-09 08:09] VITALS: BMI 59.6
[~2019-07-12 17:42] MED LIST changes: +COREG 3.1253.125 MG PO; +LIPITOR20 MG PO; +OMNICEF300 MG PO; +PROPAFENONE HC225 MG PO; +TRICOR145 MG PO
[2019-07-12 18:22] LABS: CHOL - HDL RATIO 5.4 ratio (2.3-4.9); LDL-HDL RATIO 2.8 ratio (1.5-3.5)
== END | disposition home or self-care (01) ==
LOC: D.LABREF 17:42
PROVIDERS: ATTEND Internal Medicine Interventional Cardiology
DX: E78.5 Hyperlipidemia, unspecified (principal)

== ENCOUNTER 2020-12-28 10:11 | Day surgery (SDC) | payer OTHER, MEDICAID ==
[~2020-12-28] VITALS: Ht 185.4 cm; Wt 213.6 kg
--- NOTE | ~2020-12-28 | OP ---
PATIENT NAME: BALDO GAN JR MEDICAL RECORD: [id number] :70 LOCATION:[facility] ADMISSION DATE: SURGEON: TABATHA ORTIZ MD DATE OF OPERATION: 12/28/2020 PROCEDURE: Colonoscopy. PREOPERATIVE DIAGNOSIS: History of polyps. MEDICATION: Propofol per anesthesia. DESCRIPTION OF PROCEDURE: Colonoscopy was performed. The colonoscope was inserted through the rectum and advanced to the cecum, identified by the ileocecal valve and the appendiceal orifice. There were a few sigmoid diverticula visualized. There was a small rectal polyp. This was removed with hot snare polypectomy. There were nonbleeding internal hemorrhoids viewed on retroflexion. The patient tolerated the procedure well. FINAL DIAGNOSES: Few sigmoid diverticula, 5-mm rectal polyp, removed with hot snare polypectomy. Nonbleeding internal hemorrhoids. PLAN: Check histology results. Advance diet. Return to GI office. TRANSINT:[id number] Voice Confirmation ID: [id number] DOCUMENT ID: [id number] TABATHA ORTIZ MD CC: [id number] DICTATION DATE: 12/28/20 1221 WHEAT INSPECTOR: 12/28/20 1517 [facility] 12/28/20 [facility] [address] [place] [address]
[2020-12-28 10:41] LABS: BASOPHILS 0.4 % (0-2); EOSINOPHILS 1.3 % (0-7); HEMATOCRIT 45.4 % (42.0-54.0); HEMOGLOBIN 15.1 g/dL (13.5-17.5); IMMATURE GRANULOCYTES 0.3 % (0-5); LYMPHOCYTE ABS# 1.56 10x3/uL (1.32-3.57); MCH 30.7 pg (26.0-34.0); MCHC 33.3 g/dL (31.0-37.0); MCV 92.3 fL (80.0-100.0); MONOCYTES 9.5 % (2-11); NEUTROPHIL ABS# 7.07 10x3/uL (1.78-5.38); NEUTROPHILS 72.5 % (40-80); RBC 4.92 10x6/uL (4.20-6.10); RDW 13.8 % (11.5-14.5); WBC 9.8 10x3/uL (4.8-10.8)
[2020-12-28 10:42] LABS: PLATELET COUNT 315 10x3/uL (130-400)
[2020-12-28 10:50] LABS: ANION GAP 11.6 mmol/L (8-16); CALCIUM 9.1 mg/dL (8.5-10.1); CARBON DIOXIDE 31.4 mmol/L (21.0-32.0); CREATININE - SERUM 1.7 mg/dL (0.6-1.3)
[2020-12-28 11:05] VITALS: BP 142/83; Ht 185.4 cm; Wt 213.6 kg
--- NOTE | 2020-12-28 13:24 | NUR ---
IV DC'D WITH TIP INTACT, DISCHARGE INSTRUCTIONS PROVIDED.
== END 2020-12-28 13:25 | disposition home or self-care (01) ==
LOC: D.OPS 10:11
PROVIDERS: Anesthesiology; ATTEND Internal Medicine Gastroenterology
DX: Z86.010 Personal history of colon polyps (principal); K57.30 Diverticulosis of large intestine without perforation or abscess without bleeding; K63.5 Polyp of colon; Z12.11 Encounter for screening for malignant neoplasm of colon

== ENCOUNTER 2021-01-20 02:51 | Inpatient (IN) | payer OTHER, MEDICAID ==
[2021-01-20] VITALS (8 sets, daily range): BP systolic 107–140; BP diastolic 51–88; BMI 59.5
[~2021-01-20] VITALS: Ht 185.4 cm; Wt 204.1 kg
--- NOTE | ~2021-01-20 | CN ---
PATIENT NAME:BALDO GAN JR MEDICAL RECORD: [id number] : 70 LOCATION:D. D.2101 ADMIT DATE: 01/20/21 ACCOUNT: [id number] CONSULTING PHYSICIAN: DANIAL CABRERA MD REFERRING PHYSICIAN: ROXANNE GUILLEN MD DATE OF CONSULTATION: 01/20/2021 HISTORY OF PRESENT ILLNESS: The patient is a 50-year-old male with history of hypertension, hyperlipidemia, morbid obesity, who was admitted with an episode of chest pain. The patient denies exertional component to his symptoms. The patient states he has an episode of atrial fibrillation and possible seizure activity last night. I was asked to evaluate from a cardiovascular standpoint. PAST MEDICAL HISTORY: 1. Chest pain/discomfort - atypical features. 2. Right bundle branch block. 3. Hypertension. 4. Hyperlipidemia. 5. History of paroxysmal atrial fibrillation. 6. Morbid obesity. MEDICATIONS: 1. Aspirin 81 mg daily. 2. Spironolactone 50 mg daily. 3. Oxycodone p.r.n. 4. Propafenone 225 mg b.i.d. 5. Atorvastatin 20 mg daily. 6. TriCor 145 mg daily. 7. Coreg 3.125 mg b.i.d. 8. Keppra 1000 mg b.i.d. 9. Lasix 80 mg b.i.d. PHYSICAL EXAMINATION: GENERAL: Obese white male who is in no apparent distress. VITAL SIGNS: Blood pressure 110s over 60s, pulse 60s (regular). HEENT: Sclerae are clear. Conjunctivae pink. NECK: Supple. No appreciated JVD. HEART: Regular rate and rhythm. No appreciable murmurs or gallops. LUNGS: Clear bilaterally. ABDOMEN: Obese. EXTREMITIES: Negative for edema. NEUROLOGIC: Nonfocal. DIAGNOSTIC DATA: EKG, normal sinus rhythm, 79 beats per minute, right bundle branch block morphology. LABORATORY DATA: Troponin is 0.017 (negative). Sodium 138, potassium 3.8, BUN is 23, creatinine is 1.4. White blood cell count 11.5, hemoglobin and hematocrit 13.5 and 40.1, platelet count is 353. ASSESSMENT: 1. Chest pain/discomfort - atypical features. 2. Right bundle branch block morphology. 3. History of paroxysmal atrial fibrillation - currently in sinus rhythm. CONSULT REPORT [id number] BALDO GAN JR 4. Hypertension. 5. Hyperlipidemia. 6. Morbid obesity. PLAN: Continue current medical management at this time. There is no evidence of acute cardiac decompensation/event at this time. We will obtain echocardiogram to assess LV function and valve status. Further recommendation as clinically indicated. Thank you for allowing me to participate in the care of this patient. TRANSINT:[id number] Voice Confirmation ID: [id number] DOCUMENT ID: [id number] DANIAL CABRERA MD CC: [id number] DICTATION DATE: 01/20/21 1326 TOBACCO CHECKOUT CLERK: 01/22/21 2150 ADM IN [facility] [address] [place] [id number]
[2021-01-20 03:25] LABS: BASOPHILS 1.8 % (0-2); EOSINOPHILS 2.6 % (0-7); HEMATOCRIT 40.1 % (42.0-54.0); HEMOGLOBIN 13.5 g/dL (13.5-17.5); MCH 30.6 pg (26.0-34.0); MCHC 33.7 g/dL (31.0-37.0); MCV 90.9 fL (80.0-100.0); MEAN PLATELET VOLUME 8.7 fL (7.4-10.4); MONOCYTES 8.4 % (2-11); NEUTROPHILS 68.2 % (40-80); PLATELET COUNT 353 10x3/uL (130-400); RBC 4.41 10x6/uL (4.20-6.10); RDW 14.2 % (11.5-14.5); WBC 11.5 10x3/uL (4.8-10.8)
[2021-01-20 03:35] LABS: CALC OSMOLALITY 281 mosm/kg (275-300); CALCIUM 8.2 mg/dL (8.5-10.1); CARBON DIOXIDE 24.7 mmol/L (21.0-32.0); CHLORIDE - SERUM 104 mmol/L (98-107); CREATININE - SERUM 1.4 mg/dL (0.6-1.3); GLUCOSE 132 mg/dL (74-106); POTASSIUM - SERUM 3.8 mmol/L (3.5-5.1); SODIUM 138 mmol/L (136-145); UREA NITROGEN 23 mg/dL (7-18); eGFR NON AFRICAN AMERICAN 57 mL/min (90-120)
[2021-01-20 03:44] LABS: ALBUMIN 3.2 g/dL (3.4-5.0); ALKALINE PHOSPHATASE 97 U/L (30-120); ALT (SGPT) 35 U/L (10-68); BILIRUBIN - TOTAL 0.18 mg/dL (0.2-1.3); PROTEIN - SERUM 6.9 g/dL (6.4-8.2)
[2021-01-20 03:45] LABS: TROPONIN-I < 0.017 ng/mL (0.000-0.060)
[2021-01-20 03:48] LABS: INR 1.18 (0.85-1.17); PROTIME 13.9 SECONDS (11.6-15.0)
--- NOTE | 2021-01-20 07:56 | NUR ---
PATIENT TO ROOM VIA STRETCHER AT THIS TIME. AMBULATED TO BED WITH ONE ASSIST. FREE FROM SIGN OF DISTRESS AT THIS TIME. IV SALINE LOCKED. DENIES NEEDS AT THIS TIME. BED LOW POSITION, CALL LIGHT IN REACH. WILL CONTINUE TO MONITOR.
[2021-01-20 18:46] LABS: UDS - AMPHET NEGATIVE QUAL (NEGATIVE); UDS - BARB NEGATIVE QUAL (NEGATIVE); UDS - BENZO NEGATIVE QUAL (NEGATIVE); UDS - COCAINE NEGATIVE QUAL (NEGATIVE); UDS - OPIATE POSITIVE QUAL (NEGATIVE); UDS - PCP NEGATIVE QUAL (NEGATIVE); UDS - THC NEGATIVE QUAL (NEGATIVE)
--- NOTE | 2021-01-20 20:53 | NUR ---
ANTONIO UNDERWOOD PAGED. PRN ORDERS FOR X-RAY IF RIGHT KNEE GETS ANYMORE PAINFUL. 04/09. WILL CONTINUE TO MONITOR
[2021-01-21] VITALS: BP 106/61
[2021-01-21 06:54] LABS: EOSINOPHILS 2.9 % (0-7); HEMATOCRIT 43.2 % (42.0-54.0); HEMOGLOBIN 14.7 g/dL (13.5-17.5); LYMPHOCYTES 15.7 % (15-50); MCHC 34.1 g/dL (31.0-37.0); MCV 90.9 fL (80.0-100.0); NEUTROPHILS 72.4 % (40-80); RBC 4.75 10x6/uL (4.20-6.10); RDW 14.1 % (11.5-14.5)
[2021-01-21 07:07] LABS: PLATELET COUNT 431 10x3/uL (130-400)
[2021-01-21 07:24] LABS: ANION GAP 12.6 mmol/L (8-16); BILIRUBIN - TOTAL 0.58 mg/dL (0.2-1.3); CALCIUM 8.9 mg/dL (8.5-10.1); CARBON DIOXIDE 30.6 mmol/L (21.0-32.0); CREATININE - SERUM 1.7 mg/dL (0.6-1.3); MAGNESIUM - SERUM 1.9 mg/dL (1.8-2.4); PHOSPHOROUS 4.5 mg/dL (2.5-4.9); POTASSIUM - SERUM 4.2 mmol/L (3.5-5.1); PROTEIN - SERUM 7.8 g/dL (6.4-8.2)
[2021-01-21 07:25] LABS: ALBUMIN 4.1 g/dL (3.4-5.0)
[2021-01-21 08:31] VITALS: BP 117/72
--- NOTE | 2021-01-21 09:32 | NUR ---
PATIENT IS SITTING UP IN BED THIS AM. PLAN OF CARE REVIEWED AND ASSESSMENT HAS BEEN COMPLETED. CALL LIGHT IN REACH. NAD NOTED.
[2021-01-21 12:30] VITALS: Ht 185.4 cm; Wt 204.1 kg
[2021-01-21 12:53] VITALS: BP 99/60
[2021-01-21 16:43] VITALS: BP 108/55
--- NOTE | 2021-01-21 20:00 | NUR ---
REPORT RECEIVED. PT A&O, UP IN BED WATCHING TV. NO S/S OF DISTRESS OBSERVED. RR EVEN & UNLABORED ON RA. IV TO R AC PATENT, SL, SWAB CAPS IN USE. SR 76 ON TELE. BED LOCKED AND LOWERED, CL IN REACH. ASSESSMENT COMPLETE. WILL CONT POC.
[2021-01-21 21:00] VITALS: BP 109/49
[2021-01-21 23:51] VITALS: BP 109/49
[2021-01-22 04:00] VITALS: BP 118/76; BP 119/69
[2021-01-22 05:33] LABS: BASOPHILS 0.3 % (0-2); EOSINOPHILS 2.9 % (0-7); HEMATOCRIT 42.7 % (42.0-54.0); HEMOGLOBIN 14.3 g/dL (13.5-17.5); IMMATURE GRANULOCYTES 0.6 % (0-5); LYMPHOCYTE ABS# 1.74 10x3/uL (1.32-3.57); LYMPHOCYTES 18.8 % (15-50); MCH 31.1 pg (26.0-34.0); MCHC 33.5 g/dL (31.0-37.0); MCV 92.8 fL (80.0-100.0); MEAN PLATELET VOLUME 12.4 fL (7.4-10.4); MONOCYTES 7.8 % (2-11); NEUTROPHIL ABS# 6.44 10x3/uL (1.78-5.38); NEUTROPHILS 69.6 % (40-80); PLATELET COUNT 369 10x3/uL (130-400); RDW 14.6 % (11.5-14.5); WBC 9.3 10x3/uL (4.8-10.8)
[2021-01-22 05:42] LABS: ALBUMIN 3.5 g/dL (3.4-5.0); ANION GAP 9.5 mmol/L (8-16); BILIRUBIN - TOTAL 0.3 mg/dL (0.2-1.3); CARBON DIOXIDE 29.1 mmol/L (21.0-32.0); CREATININE - SERUM 1.7 mg/dL (0.6-1.3); MAGNESIUM - SERUM 1.7 mg/dL (1.8-2.4); POTASSIUM - SERUM 3.6 mmol/L (3.5-5.1); PROTEIN - SERUM 7.4 g/dL (6.4-8.2)
[2021-01-22 05:44] LABS: PHOSPHOROUS 2.9 mg/dL (2.5-4.9)
[2021-01-22 07:55] VITALS: BP 102/70
[2021-01-22 12:22] VITALS: BP 113/75
[2021-01-22 15:51] VITALS: BP 118/65
--- NOTE | 2021-01-22 19:30 | NUR ---
PT IN BED, AAO X 4, PT C/O KNEE PAIN, PT RESP EVEN AND UNLABORED, NO DISTRESS NOTED, CL IN REACH, SR UP X 2.
[2021-01-22 21:04] VITALS: BP 142/73
[2021-01-23 00:11] VITALS: BP 159/104
--- NOTE | 2021-01-23 03:06 | NUR ---
I have reviewed this patient and I concur with the Shift Assessment completed by the Licensed Practical Nurse today this shift.
[2021-01-23 04:36] VITALS: BP 130/79
[2021-01-23 05:24] LABS: BASOPHILS 0.7 % (0-2); EOSINOPHILS 2.5 % (0-7); HEMATOCRIT 42.3 % (42.0-54.0); HEMOGLOBIN 14.4 g/dL (13.5-17.5); LYMPHOCYTES 21.9 % (15-50); MCH 30.9 pg (26.0-34.0); MCHC 34.1 g/dL (31.0-37.0); MEAN PLATELET VOLUME 9.3 fL (7.4-10.4); MONOCYTES 9.9 % (2-11); PLATELET COUNT 357 10x3/uL (130-400); RBC 4.66 10x6/uL (4.20-6.10); WBC 9.4 10x3/uL (4.8-10.8)
[2021-01-23 05:35] LABS: MCV 90.7 fL (80.0-100.0)
[2021-01-23 05:50] LABS: ALBUMIN 3.5 g/dL (3.4-5.0); ANION GAP 9.2 mmol/L (8-16); BILIRUBIN - TOTAL 0.3 mg/dL (0.2-1.3); CALCIUM 8.2 mg/dL (8.5-10.1); CARBON DIOXIDE 31.3 mmol/L (21.0-32.0); CREATININE - SERUM 1.5 mg/dL (0.6-1.3); MAGNESIUM - SERUM 1.7 mg/dL (1.8-2.4); PHOSPHOROUS 3.2 mg/dL (2.5-4.9); POTASSIUM - SERUM 3.5 mmol/L (3.5-5.1); PROTEIN - SERUM 7.6 g/dL (6.4-8.2)
[2021-01-23 08:10] VITALS: BP 135/82
--- NOTE | 2021-01-23 08:15 | NUR ---
AM MEDS GIVEN AT THIS TIME WITH PRN PAIN MEDICATION. PT AWAKE AND ALERT, RR EVEN NON LABORED. PT AAOX3, PLEASANT AND ANSWERS QUESTIONS APPROP. NO NEEDS VOICED AT THIS TIME. BREAKFAST TRAY GIVEN. CLWR.
[2021-01-23] MEDS ORDERED: ALBUTEROL2.5 MG/3 M INH (08:43)
[2021-01-23] MEDS ORDERED: PROTONIX40 MG PO (08:44)
[2021-01-23] MEDS ORDERED: TRILEPTAL300 MG PO (08:46)
--- NOTE | 2021-01-23 11:01 | NUR ---
D/C INSTRUCTIONS GIVEN AT THIS TIME INCLUDING FOLLOW UP APPS AND MEDICATIONS. PT STATES UNDERSTANDING. PT STATES HIS MOM WILL BE HERE TO PICK HIM UP AFTER HER DOCTOR APPOINTMENT. NO NEEDS VOICED. CLWR.
--- NOTE | 2021-01-23 11:15 | MORECARE ---
CASE MANAGEMENT DISCHARGE SUMMARY PATIENT: BALDO GAN UNIT: [id number] ADM DATE: 01/20/21 AGE: 50 : 70 SEX: M ROOM/BED: D.210 AUTHOR: PHILOMENA,DOC PHYSICIAN: REFERRING PHYSICIAN: ROXANNE GUILLEN MD DATE OF SERVICE: 01/23/21 Case Management Discharge Planning Summary DCP REVIEW SUMMARY ANTICIPATED D/C DATE: 01/23/2021 EXPECTED LOS : 3 CASE STATUS: DCP Initiated INITIAL REVIEW: 01/20/2021 INITIAL REVIEWER: Ritu Coelho FINAL DISCHARGE DISPOSITION: 01 : Home or Self Care (Routine Discharge) FINAL REVIEWER: FINAL REVIEW DATE: DCP Focus Questions & Answers QUESTION: ANSWER : PATIENT: BALDO GAN ENCOUNTER: [id number] MEDICAL RECORD#: [id number] ADMISSION DATE: 01/20/2021 DISCHARGE DATE: ATTENDING MD: ROXANNE MCKEON : AGE: 50 MARITAL STATUS: S DC PLAN ID: [id number] FACILITY: [facility] PRINTED ON: 01/23/21 11:15 CT All edits/amendments must be made on the electronic document DICTATION DATE: 01/23/21 111 COTTAGE CHEESE MAKER: LEANDRO 01/23/21 1114 RPT#: [id number] DC DATE: STATUS: ADM IN [facility] [address] [place] [address] END OF REPORT
--- NOTE | 2021-01-23 11:28 | MORECARE ---
CASE MANAGEMENT DISCHARGE SUMMARY PATIENT: BALDO GAN JR UNIT: [id number] ADM DATE: 01/20/21 AGE: 50 : 70 SEX: M ROOM/BED: D.2101 AUTHOR: PHILOMENA,DOC PHYSICIAN: REFERRING PHYSICIAN: ROXANNE GUILLEN MD DATE OF SERVICE: 01/23/21 Case Management Discharge Planning Summary COMMENTS ENTERED DATE: 01/23/21 11:21 CT COMMENT TYPE: Discharge Planning REVIEWER: Ritu Coelho CM met with patient to complete discharge planning assessment and offer availability of needed services. Patient states that he lives independently at home with his mother prior to admission. Pt verified that home environment is safe and has electricity and running water. Patient denies need for transportation and state that he has funds for services and medications if needed. PCP is Dr. Bhat and patient uses [facility]. CM offered and discussed home health, rehab services, and need for any medical equipment. Patient did not express need for offered services at this time. Patient does have nebulizer that he purchased from [employer] several years ago and uses a crutch if needed for stability due to an injury to right knee several years ago. Transportation home will be provided by his mother (Magi Reyes [phone]). Patient verbalized understanding of signed forms. IMM served, and signed copy placed on chart. Voices no additional needs at this time. Pt states mother will be available for transport home at 1500 this afternoon. FLP REVIEW SUMMARY ANTICIPATED D/C DATE: 01/23/2021 EXPECTED LOS : 3 CASE STATUS: DCP Initiated INITIAL REVIEW: 01/20/2021 INITIAL REVIEWER: Ritu Coelho FINAL DISCHARGE DISPOSITION: 01 : Home or Self Care (Routine Discharge) FINAL REVIEWER: FINAL REVIEW DATE: FLP Focus Questions & Answers DCP Screen QUESTION: ANSWER High Risk Factors: : None Walking limitation: Patient stated self rated walking limitation present? : Yes Age: : 45 - 64 Prior living environment: : Lives with others Disability ranking: : Grade 2: Slight disability DCP Evaluation QUESTION: ANSWER Patient's ability to cope with chronic illness : d. No chronic illness Patient's current cognitive status: : *Oriented to person, place, situation, time and present Family / Caregiver's ability to cope with chronic illness: : a. Adequate (ability to meet patient's medical needs, ensures patient attends medical appts.) Patient and/or caregiver agree upon recommended discharge plan? : Yes Physical Status: : Independent with ADL's Family / Caregiver's ability to cope with chronic illness: : a. Adequate (ability to meet patient's medical needs, ensures patient attends medical appts.) Functional screen assessment: : Can meet basic needs but may require referral for resources Does the patient have the ability to pay for or attain post discharge needs / services? : Yes Is there a likelihood that the patient will require additional services to return to the preadmission environment? : N/A Equipment needed for post hospitalization: : None Baseline cognitive status: : *Oriented to person, place, situation, time and present Living arrangements comments: : LIVES WITH MOTHER Patient with capacity for self-care or can be cared for in same environment as prior to hospitalization? 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 : N/A Does Patient have transportation to get home and to follow-up medical appointments when discharged from the hospital? : Yes Planned post hospital services covered by insurance plan? : N/A Would patient like to participate in any Care Coordination programs (if applicable): : Not applicable Does the patient have electricity at home? : Yes Does the patient have running water in their house? : Yes Equipment in use: : Crutches Equipment in use: : Nebulizer Mental health screen: : No mental health history Psychosocial status: : Independent adult (18-64) Abuse/Neglect: : None Resources / Services in place: : None DCP Re-evaluation QUESTION: ANSWER Would patient like to participate in any Care Coordination programs (if applicable): : Not applicable PATIENT: BALDO GAN ENCOUNTER: [id number] MEDICAL RECORD#: [id number] ADMISSION DATE: 01/20/2021 DISCHARGE DATE: ATTENDING MD: ROXANNE MCKEON : AGE: 50 MARITAL STATUS: S DC PLAN ID: [id number] FACILITY: [facility] PRINTED ON: 01/23/21 11:28 CT All edits/amendments must be made on the electronic document DICTATION DATE: 01/23/211127 BALANCE STAFF INSPECTOR: LEANDRO 01/23/211127 RPT#: [id number] FL DATE: STATUS: ADM IN [facility] [address] [place] [address] END OF REPORT
--- NOTE | 2021-01-23 13:16 | MORECARE ---
CASE MANAGEMENT DISCHARGE SUMMARY PATIENT: BALDO GAN JR UNIT: [id number] ADM DATE: 01/20/21 AGE: 50 : 70 SEX: M ROOM/BED: D.2101 AUTHOR: PHILOMENA,DOC PHYSICIAN: REFERRING PHYSICIAN: ROXANNE GUILLEN MD DATE OF SERVICE: 01/23/21 Case Management Discharge Planning Summary COMMENTS ENTERED DATE: 01/23/21 11:21 CT COMMENT TYPE: Discharge Planning REVIEWER: Ritu Coelho CM met with patient to complete discharge planning assessment and offer availability of needed services. Patient states that he lives independently at home with his mother prior to admission. Pt verified that home environment is safe and has electricity and running water. Patient denies need for transportation and state that he has funds for services and medications if needed. PCP is Dr. Bhat and patient uses [facility] pharmacy. CM offered and discussed home health, rehab services, and need for any medical equipment. Patient did not express need for offered services at this time. Patient does have nebulizer that he purchased from [employer] several years ago and uses a crutch if needed for stability due to an injury to right knee several years ago. Transportation home will be provided by his mother (Magi Reyes [phone]). Patient verbalized understanding of signed forms. IMM served, and signed copy placed on chart. Voices no additional needs at this time. Pt states mother will be available for transport home at 1500 this afternoon. WVP REVIEW SUMMARY ANTICIPATED D/C DATE: 01/23/2021 EXPECTED LOS : 3 CASE STATUS: DCP Initiated INITIAL REVIEW: 01/20/2021 INITIAL REVIEWER: Ritu Coelho FINAL DISCHARGE DISPOSITION: 01 : Home or Self Care (Routine Discharge) FINAL REVIEWER: FINAL REVIEW DATE: WVP Focus Questions & Answers DCP Screen QUESTION: ANSWER High Risk Factors: : None Walking limitation: Patient stated self rated walking limitation present? : Yes Age: : 45 - 64 Prior living environment: : Lives with others Disability ranking: : Grade 2: Slight disability DCP Evaluation QUESTION: ANSWER Patient's ability to cope with chronic illness : d. No chronic illness Patient's current cognitive status: : *Oriented to person, place, situation, time and present Family / Caregiver's ability to cope with chronic illness: : a. Adequate (ability to meet patient's medical needs, ensures patient attends medical appts.) Patient and/or caregiver agree upon recommended discharge plan? : Yes Physical Status: : Independent with ADL's Family / Caregiver's ability to cope with chronic illness: : a. Adequate (ability to meet patient's medical needs, ensures patient attends medical appts.) Functional screen assessment: : Can meet basic needs but may require referral for resources Does the patient have the ability to pay for or attain post discharge needs / services? : Yes Is there a likelihood that the patient will require additional services to return to the preadmission environment? : N/A Equipment needed for post hospitalization: : None Baseline cognitive status: : *Oriented to person, place, situation, time and present Living arrangements comments: : LIVES WITH MOTHER Patient with capacity for self-care or can be cared for in same environment as prior to hospitalization? : Yes Results of this evaluation have been discussed with: : Patient Physical environment modification needed / anticipated for discharge: : No Medication Management: : Patient states can afford medications Medication Management: : Patient states they do have transportation to pick up and delivery driver medications Medication Management: : Patient states can read and understand medication labels Pharmacy name(s): : [facility] Planned post hospital services available for patient? : N/A Does Patient have transportation to get home and to follow-up medical appointments when discharged from the hospital? : Yes Planned post hospital services covered by insurance plan? : N/A Would patient like to participate in any Care Coordination programs (if applicable): : Not applicable Does the patient have electricity at home? : Yes Does the patient have running water in their house? : Yes Equipment in use: : Crutches Equipment in use: : Nebulizer Mental health screen: : No mental health history Psychosocial status: : Independent adult (18-64) Abuse/Neglect: : None Resources / Services in place: : None DCP Re-evaluation QUESTION: ANSWER Would patient like to participate in any Care Coordination programs (if applicable): : Not applicable PATIENT: BALDO GAN ENCOUNTER: [id number] MEDICAL RECORD#: [id number] ADMISSION DATE: 01/20/2021 DISCHARGE DATE: ATTENDING MD: ROXANNE MCKEON : AGE: 50 MARITAL STATUS: S DC PLAN ID: [id number] FACILITY: [facility] PRINTED ON: 01/23/21 13:16 CT All edits/amendments must be made on the electronic document DICTATION DATE: 01/23/211315 RETAIL INTERIOR DESIGNER: LEANDRO 01/23/211315 RPT#: [id number] DC DATE: STATUS: ADM IN [facility] [address] [place] [address] END OF REPORT
--- NOTE | 2021-01-23 14:20 | NUR ---
IV D/C CATHETER INTACT, DRESSING APPLIED.
[2021-01-23 15:12] LABS: EHRLICHIA CHAFF IGG Negative (Neg:<1:64); EHRLICHIA CHAFF IGM Negative (Neg:<1:20); HGE IGG TITER Negative (Neg:<1:64); HGE IGM TITER Negative (Neg:<1:20)
--- NOTE | 2021-01-23 15:28 | NUR ---
PT WHEELED TO PRIVATE VEHICLE WITH ALL BELONGINGS WITH AIDE AT THIS TIME. NO DISTRESS NOTED ON DEPARTURE.
--- NOTE | 2021-01-23 22:17 | MORECARE ---
CASE MANAGEMENT DISCHARGE SUMMARY PATIENT: BALDO GAN JR UNIT: [id number] ADM DATE: 01/20/21 AGE: 50 : 70 SEX: M ROOM/BED: D.2104 AUTHOR: PHILOMENA,DOC PHYSICIAN: REFERRING PHYSICIAN: ROXANNE GUILLEN MD DATE OF SERVICE: 01/23/21 Case Management Discharge Planning Summary COMMENTS ENTERED DATE: 01/23/21 11:21 CT COMMENT TYPE: Discharge Planning REVIEWER: Ritu Coelho CM met with patient to complete discharge planning assessment and offer availability of needed services. Patient states that he lives independently at home with his mother prior to admission. Pt verified that home environment is safe and has electricity and running water. Patient denies need for transportation and state that he has funds for services and medications if needed. PCP is Dr. Bhat and patient uses [facility]. CM offered and discussed home health, rehab services, and need for any medical equipment. Patient did not express need for offered services at this time. Patient does have nebulizer that he purchased from [employer] several years ago and uses a crutch if needed for stability due to an injury to right knee several years ago. Transportation home will be provided by his mother (Magi Reyes [phone]). Patient verbalized understanding of signed forms. IMM served, and signed copy placed on chart. Voices no additional needs at this time. Pt states mother will be available for transport home at 1500 this afternoon. MDP REVIEW SUMMARY ANTICIPATED D/C DATE: 01/23/2021 EXPECTED LOS : 3 CASE STATUS: DCP Initiated INITIAL REVIEW: 01/20/2021 INITIAL REVIEWER: Ritu Coelho FINAL DISCHARGE DISPOSITION: 01 : Home or Self Care (Routine Discharge) FINAL REVIEWER: FINAL REVIEW DATE: MDP Focus Questions & Answers DCP Screen QUESTION: ANSWER High Risk Factors: : None Walking limitation: Patient stated self rated walking limitation present? : Yes Age: : 45 - 64 Prior living environment: : Lives with others Disability ranking: : Grade 2: Slight disability DCP Evaluation QUESTION: ANSWER Patient and/or caregiver agree upon recommended discharge plan? : Yes Family / Caregiver's ability to cope with chronic illness: : a. Adequate (ability to meet patient's medical needs, ensures patient attends medical appts.) Patient's current cognitive status: : *Oriented to person, place, situation, time and present Patient's ability to cope with chronic illness : d. No chronic illness Does the patient have the ability to pay for or attain post discharge needs / services? : Yes Functional screen assessment: : Can meet basic needs but may require referral for resources Family / Caregiver's ability to cope with chronic illness: : a. Adequate (ability to meet patient's medical needs, ensures patient attends medical appts.) Physical Status: : Independent with ADL's Equipment needed for post hospitalization: : None Is there a likelihood that the patient will require additional services to return to the preadmission environment? : N/A Results of this evaluation have been discussed with: : Patient Patient with capacity for self-care or can be cared for in same environment as prior to hospitalization? 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 : N/A Pharmacy name(s): : [facility] Planned post hospital services covered by insurance plan? : N/A Does Patient have transportation to get home and to follow-up medical appointments when discharged from the hospital? : Yes Would patient like to participate in any Care Coordination programs (if applicable): : Not applicable Does the patient have electricity at home? : Yes Does the patient have running water in their house? : Yes Equipment in use: : Nebulizer Equipment in use: : Crutches Mental health screen: : No mental health history Psychosocial status: : Independent adult (18-64) Abuse/Neglect: : None Resources / Services in place: : None DCP Re-evaluation QUESTION: ANSWER Would patient like to participate in any Care Coordination programs (if applicable): : Not applicable PATIENT: BALDO GAN ENCOUNTER: [id number] MEDICAL RECORD#: [id number] ADMISSION DATE: 01/20/2021 DISCHARGE DATE: 01/23/2021 ATTENDING MD: ROXANNE MCKEON : AGE: 50 MARITAL STATUS: S DC PLAN ID: [id number] FACILITY: [facility] PRINTED ON: 01/23/21 22:17 CT All edits/amendments must be made on the electronic document DICTATION DATE: 01/23/212216 [employer] MANAGER: LEANDRO 01/23/212216 RPT#: [id number] DC DATE:01/23/21 STATUS: DIS IN [facility] [address] [place] [address] END OF REPORT
[2021-01-24 16:09] LABS: RMSF IGM 1.96 index (0.00-0.89)
== END 2021-01-23 15:29 | disposition home or self-care (01) | DRG 309 ==
LOC: D.ER 02:51 → OBSVTIME 06:50 → D.M2 06:50
PROVIDERS: Student in an Organized Health Care Education/Training Program; ADMIT Family Medicine; ATTEND Family Medicine
DX: I48.0 Paroxysmal atrial fibrillation (principal); Z68.43 Body mass index [BMI] 50.0-59.9, adult; I10 Essential (primary) hypertension; E78.5 Hyperlipidemia, unspecified; E66.01 Morbid (severe) obesity due to excess calories; K21.9 Gastro-esophageal reflux disease without esophagitis; F41.9 Anxiety disorder, unspecified; M17.11 Unilateral primary osteoarthritis, right knee; W19.XXXA Unspecified fall, initial encounter; J44.9 Chronic obstructive pulmonary disease, unspecified; R56.9 Unspecified convulsions